=== PATIENT | female | born 1960 | race Caucasian/White ===

== ENCOUNTER 2018-04-19 08:01 | Emergency (ER) | payer OTHER, SELFPAY ==
[2018-04-19 08:05] VITALS: BP 149/61; PULSE 72; RESP 20; TEMP 36.3; O2SAT 100
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
[2018-04-19 08:30] VITALS: BP 130/47; PULSE 69; RESP 16; O2SAT 99
--- NOTE | 2018-04-19 08:39 | DI.RAD.S_ITS ---
PROCEDURE: XR CHEST 1V INDICATIONS: syncope TECHNIQUE: One view of the chest was acquired. COMPARISON: [facility], CR, XR CHEST 1VW (PORTABLE), 01/05/2017, 16:30. FINDINGS: Surgical changes and devices: Cardiac defibrillator is stable. Lungs and pleura: No pleural effusions or pneumothorax. Lungs are clear. Mediastinum: Mediastinal contours appear normal. Heart size is enlarged. Bones and chest wall: No suspicious bony lesions. Overlying soft tissues appear unremarkable. IMPRESSION: No acute cardiopulmonary disease process. Dictated by: Jaimie King MD, PhD on 04/19/2018 at 8:50 Approved by: Jaimie King MD, PhD on 04/19/2018 at 8:52
[2018-04-19 08:52] LABS: Add Manual Diff / Slide Review NO; Alanine Aminotransferase 27 IU/L (9-52); Albumin 4.1 g/dL (3.5-5.0); Albumin Globulin Ratio 1.2 (1.0-2.8); Alkaline Phosphatase 87 U/L (38-126); Aspartate Aminotransferase 24 IU/L (14-36); BUN Creatinine Ratio 26.3 (6-22); Basophils Percent Auto 0.3 % (0-2); Bilirubin Total 0.4 mg/dL (0.2-1.3); Blood Urea Nitrogen 21 mg/dL (7-17); Calcium 8.6 mg/dL (8.4-10.2); Carbon Dioxide 33 mmol/L (22-32); Chloride 101 mmol/L (98-107); Creatine Kinase 58 U/L (30-135); Eosinophils Percent Auto 2.2 % (2-4); Estimated Glomerular Filt Rate > 60.0 mL/min (>60); Globulin 3.5 g/dL (1.7-4.1); Glucose 90 mg/dL (70-100); HEMOLYSIS < 15 (0-50); Hematocrit 29.6 % (36-46); Hemoglobin 9.6 g/dL (12.0-16.0); Lymphocytes Percent Auto 28.3 % (25-40); Mean Corpuscular HGB Conc 32.2 % (30-36); Mean Corpuscular Hemoglobin 27.4 PG (26-34); Mean Corpuscular Volume 84.9 fL (80-100); Monocytes Percent Auto 5.9 % (3-14); Neutrophils Absolute Auto 5400 /uL (3000-5900); Neutrophils Percent Auto 63.3 % (50-75); Platelet Count 336 X10^3/uL (150-400); Potassium 4.4 mmol/L (3.4-5.1); Red Blood Cell Count 3.49 X10^6/uL (4.0-5.2); Red Cell Distribution Width 15.6 % (11.6-14.8); Sodium 142 mmol/L (137-145); Total Protein 7.6 g/dL (6.3-8.2); White Blood Cell Count 8.5 X10^3/uL (4.5-11.0)
[2018-04-19] MEDS: ASPIRIN 325 MG TABLET PO (08:53)
[2018-04-19 08:59] VITALS: BP 130/47; PULSE 67; RESP 17; O2SAT 99
[2018-04-19 09:08] LABS: Troponin I < 0.012 ng/mL (0.01-0.034)
[2018-04-19 09:13] LABS: B Type Natriuretic Peptide 98.6 (<100)
[2018-04-19 09:45] VITALS: BP 135/51; PULSE 67; RESP 17; O2SAT 100
[2018-04-19 10:14] LABS: Appearance Urine UA SL CLOUDY; Bilirubin Urine UA NEGATIVE (NEGATIVE); Color Urine UA YELLOW; Glucose Urine UA NEGATIVE (Normal); Ketones Urine UA NEGATIVE (NEGATIVE); Leukocyte Esterase Urine UA NEGATIVE (NEGATIVE); Nitrite Urine UA NEGATIVE (Negative); Occult Blood Urine UA NEGATIVE (Negative); Protein Urine UA NEGATIVE (Negative)
[2018-04-19 10:31] LABS: Bacteria Urine Many (>30); Culture Indicated Urine Cult Not Indicated; RBC Urine 0-1/HPF (0-5/HPF); Squamous Epithelial Cell Urine 5-10 /HPF; WBC Urine 1-5/HPF (0-5/HPF)
[2018-04-19 10:54] VITALS: BP 140/56; PULSE 69; RESP 14; O2SAT 100
[2018-04-19 12:03] VITALS: BP 148/56; PULSE 70; RESP 16; O2SAT 100
== END 2018-04-19 12:17 | disposition home or self-care (01) ==
PROVIDERS: Emergency Provider Emergency Medicine
DX: R55 Syncope and collapse (principal)
CPT/HCPCS: 36591; 71045; 80053; 81001; 82550; 82962; 83880; 84484; 85025; 93005; 93041

== ENCOUNTER 2018-04-19 19:37 | Emergency (ER) | payer OTHER, SELFPAY ==
[2018-04-19 19:38] VITALS: BP 173/76; PULSE 77; RESP 16; TEMP 36.2; O2SAT 97; BMI 49.8
--- NOTE | 2018-04-19 19:50 | DI.RAD.S_ITS ---
PROCEDURE: XR CHEST 1V INDICATIONS: pain, defib discharge TECHNIQUE: One view of the chest was acquired. COMPARISON: [facility], CR, XR CHEST 1V, 04/19/2018, 8:44. FINDINGS: Surgical changes and devices: Single lead defibrillator is unchanged. Lungs and pleura: No pleural effusions or pneumothorax. Lungs are clear. Mediastinum: Mediastinal contours appear normal. Heart size is enlarged, as before. Bones and chest wall: No suspicious bony lesions. Overlying soft tissues appear unremarkable. IMPRESSION: Stable cardiomegaly. No acute pulmonary findings. Dictated by: Dawna Brewer M.D. on 04/19/2018 at 20:31 Approved by: Dawna Brewer M.D. on 04/19/2018 at 20:31
[2018-04-19 20:04] LABS: Add Manual Diff / Slide Review NO; Basophils Percent Auto 0.7 % (0-2); Eosinophils Percent Auto 2.2 % (2-4); Hematocrit 30.5 % (36-46); Hemoglobin 9.9 g/dL (12.0-16.0); Lymphocytes Percent Auto 25.9 % (25-40); Mean Corpuscular HGB Conc 32.4 % (30-36); Mean Corpuscular Hemoglobin 27.3 PG (26-34); Mean Corpuscular Volume 84.1 fL (80-100); Monocytes Percent Auto 6.1 % (3-14); Neutrophils Absolute Auto 6900 /uL (3000-5900); Neutrophils Percent Auto 65.1 % (50-75); Platelet Count 340 X10^3/uL (150-400); Red Blood Cell Count 3.63 X10^6/uL (4.0-5.2); Red Cell Distribution Width 15.7 % (11.6-14.8); White Blood Cell Count 10.6 X10^3/uL (4.5-11.0)
[2018-04-19] MEDS: SODIUM CHLORIDE 0.9% 1,000 ML 150 ML IV (20:11)
[2018-04-19 20:20] LABS: Alanine Aminotransferase 26 IU/L (9-52); Albumin 4.3 g/dL (3.5-5.0); Albumin Globulin Ratio 1.3 (1.0-2.8); Alkaline Phosphatase 92 U/L (38-126); Aspartate Aminotransferase 24 IU/L (14-36); BUN Creatinine Ratio 27.1 (6-22); Bilirubin Total 0.4 mg/dL (0.2-1.3); Blood Urea Nitrogen 19 mg/dL (7-17); Calcium 8.9 mg/dL (8.4-10.2); Carbon Dioxide 34 mmol/L (22-32); Chloride 99 mmol/L (98-107); Creatine Kinase 61 U/L (30-135); Estimated Glomerular Filt Rate > 60.0 mL/min (>60); Globulin 3.4 g/dL (1.7-4.1); Glucose 163 mg/dL (70-100); HEMOLYSIS < 15 (0-50); Lipase 15 U/L (23-300); Potassium 4.2 mmol/L (3.4-5.1); Sodium 142 mmol/L (137-145); Total Protein 7.7 g/dL (6.3-8.2)
[2018-04-19 20:33] LABS: Troponin I < 0.012 ng/mL (0.01-0.034)
--- NOTE | 2018-04-19 21:59 | PC.NURSE ---
Called to pt's bedside at [id number], pt had syncopal episode for less than [address] Mayberry at bedside. Pt was AOx4 after event.
[2018-04-19 22:00] VITALS: BP 153/99; PULSE 77; RESP 15; O2SAT 100
[2018-04-19 22:20] VITALS: BP 189/71; PULSE 74; RESP 15; O2SAT 98
[2018-04-19] MEDS: ONDANSETRON 4 MG/2 ML INJ IV (22:24)
--- NOTE | 2018-04-19 22:25 | ED_ITS ---
HPI - Arrhythmia/Palpitations General Chief Complaint: Arrhythmia/Palpitations Stated Complaint: Auto defib X2 Time Seen by Provider: 04/19/18 19:37 Source: patient and EMS Mode of arrival: EMS Limitations: no limitations History of Present Illness HPI narrative: 57-year-old female presents to the emergency department by EMS with a chief complaint of a syncopal episode and suspected defibrillator discharge. She was seen and evaluated earlier under similar circumstances and had what sounded like a brief near syncopal episode and after thorough evaluation was sent home. She was able to have her defibrillator interrogated at home and was told that her defibrillator did in fact discharge, she was instructed to contact her cardiology office for follow-up. Later this afternoon she had another similar episode where she was briefly syncopal. She denies any prodromal symptoms. She denies any chest pain palpitations MD complaint: rapid heart beat Onset (ago): hour(s) Duration: now resolved Severity: mild Context: AICD discharge Arrhythmia history: AICD Associated symptoms: syncope Related Data Home Medications Medication Instructions Recorded Confirmed insulin NPH isoph U-100 human 65 unit SUBCUT BID #0 08/22/06 04/19/18 [Humulin N NPH U-100 Insulin] insulin regular human [Humulin R 25 - 35 units SQ TIDAC #0 08/22/06 04/19/18 Regular U-100 Insuln] digoxin [Lanoxin] 0.125 mg PO QDAY #0 01/28/16 04/19/18 multivitamin [Multiple Vitamins] 1 tab PO QDAY #0 tab 01/28/16 04/19/18 nitroglycerin [Nitrostat] 0.4 mg SUBLINGUAL PRN PRN #0 01/28/16 04/19/18 nystatin 0 unit TOPICAL BID #30 gm 01/28/16 04/19/18 ranitidine HCl 150 mg PO BID PRN #0 cap 01/28/16 04/19/18 allopurinol 100 mg PO DAILY 04/19/18 04/19/18 carvedilol 25 mg PO BID 04/19/18 04/19/18 duloxetine 60 mg PO DAILY 04/19/18 04/19/18 furosemide 40 mg PO DAILY 04/19/18 04/19/18 isosorbide mononitrate 30 mg PO QAM 04/19/18 04/19/18 levothyroxine 175 mcg PO DAILY 04/19/18 04/19/18 pravastatin 10 mg PO DAILY 04/19/18 04/19/18 sacubitril-valsartan [Entresto] 1 tab PO BID 04/19/18 04/19/18 Allergies Allergy/AdvReac Type Severity Reaction Status Date / Time codeine Allergy Unknown Unverified 10/06/17 12:52 erythromycin base Allergy Unknown Unverified 10/06/17 12:52 [From Erythrocin] Review of Systems Review of Systems All systems reviewed & are unremarkable except as noted in HPI and below Constitutional Denies chills, Denies fever(s), Denies lethargy and Denies weakness Eyes Denies change in vision, Denies eye discharge, Denies irritation and Denies loss of vision ENT Ears, Nose, Mouth, and Throat: Denies change in voice, Denies neck pain and Denies sore throat Cardiovascular Denies chest pain, Denies irregular heart rhythm, Denies lightheadedness, Denies palpitations, Denies dyspnea, Denies dyspnea on exertion and Denies orthopnea Comments: syncope Respiratory Denies cough, Denies dyspnea, Denies dyspnea on exertion and Denies wheezing Gastrointestinal Gastrointestinal: Denies abdominal pain, Denies change in bowel habits, Denies diarrhea, Denies nausea and Denies vomiting Genitourinary Denies hematuria, Denies flank pain, Denies urinary incontinence and Denies urinary urgency Musculoskeletal Denies neck pain Integumentary/Breasts Denies pruritus, Denies erythema, Denies rash and Denies wounds Neurologic Denies confusion, Denies loss of vision and Denies weakness Psychiatric Denies anxiety, Denies confusion, Denies depression, Denies homicidal ideation and Denies suicidal ideation Endocrine Denies palpitations Hematologic/Lymphatic Denies easy bruising Allergic/Immunologic Denies wheezing [facility] Medical History CAD (coronary artery disease) (Acute) Diabetic neuropathy (Acute) Gastroparesis (Acute) Hyperlipidemia (Acute) CHF (congestive heart failure) (Acute) HTN (hypertension) (Acute) Diabetes (Acute) Surgical History H/O cardiac catheterization (Acute) History of implantable cardioverter-defibrillator (ICD) placement (Acute) Social History Smoking Status: Never smoker Exam Narrative Exam Narrative: 57-year-old female resting comfortably Initial Vital Signs Initial Vital Signs: Vital Signs Temperature 97.2 F L 04/19/18 19:38 Pulse Rate 77 04/19/18 19:38 Respiratory Rate 16 04/19/18 19:38 Blood Pressure 173/76 H 04/19/18 19:38 Pulse Oximetry 97 04/19/18 19:38 Const General: cooperative and well developed Nutritional Appearance: well nourished Orientation: alert, awake, oriented x3 and not confused HENMT Head: normocephalic and atraumatic Ears: external ears normal and TM's normal bilaterally Nose: external nose normal and No nasal discharge Face and sinus: sinuses nontender, face symmetric, no sinus tenderness and No dry mucous membranes Mouth: oral mucosae normal and moist mucous membranes Teeth and gingiva: dentition normal Throat: tonsils normal and uvula midline Eyes General: appearance normal, both eyes and all related structures Eyelids: eyelids normal Conjunctivae: conjunctivae normal Sclera: sclerae normal Pupils: PERRL EOM: EOM intact bilaterally Neck Neck: normal visual inspection, trachea midline, No lymphadenopathy, No midline deformity and No JVD Lymphatic: No lymphedema Chest Chest: normal inspection of the chest Resp Effort & Inspection: normal respiratory effort, able to speak in complete sentences, no respiratory distress and no use of accessory muscles Auscultation: clear to auscultation bilaterally, no rales, no rhonchi and no wheezes Cardio Rate: regular rate Rhythm: regular rhythm Heart Sounds: no click, no gallops, no murmurs and no rubs Pulses: normal peripheral pulses GI Inspection: non-distended Palpation: soft, no hepatosplenomegaly, No guarding, No pulsatile mass and No tender Auscultation: normal bowel sounds Back/Spine/Pelvis Back: No CVA tenderness Cervical Spine: cervical ROM normal and No pain with cervical ROM Thoracic/Lumbar Spine: thoracic and lumbar spine normal to inspection Skin General: no rashes or lesions noted, No jaundice and No petechiae Neuro General: alert, oriented x3, gait normal and no focal motor deficits Speech: speech normal Extrem General: full ROM, no clubbing, cyanosis or edema, no pedal edema and no calf tenderness Psych Appearance: well kempt Mental Status: mental status grossly normal Attitude: cooperative Thought Content: normal and suicidality Judgment: judgment good Course Orders Ordered: ED Orders 04/19/18 19:50 XR chest 1V Stat 04/19/18 19:55 Complete Blood Count AUTO DIFF Stat Comprehensive Metabolic Panel Stat Lipase Stat Troponin & CK Cardiac Panel Stat Sodium Chloride (Normal Saline 0.9%) 1,000 mls @ 150 mls/hr IV CONT CESAR Last Admin: 04/19/18 20:11 Dose: 150 mls/hr Reevaluation(s) Reevaluation #1: Called to patient's bedside for another brief syncopal event and he witnessed obvious discharge of her AICD. She quickly woke up and was asymptomatic. Our monitor shows what likely was VFib in the moments leading into her discharge Time: 21:59 Consultations Consultation #1: Dr. Lux called, he is in agreement that patient needs to come to [facility] for further eval. Recommends I speak with hospitalist. Dr. Myrick is happy to accept. Vital Signs - 8 hr 04/19/18 19:38 04/19/18 22:00 04/19/18 22:20 Temperature 97.2 F L Pulse Rate 77 77 74 Respiratory Rate 16 15 15 Blood Pressure 173/76 H 189/71 H Blood Pressure [Right Wrist] 153/99 H Pulse Oximetry 97 100 98 MDM - Arrhythmia/Palpitations Medical Records Attestation: I reviewed the patient's medical records. Lab Data Attestation: I reviewed the patient's lab results. Result diagrams: 04/19/18 19:55 04/19/18 19:55 Lab Results 04/19/18 04/19/18 Range/Units 19:55 19:55 WBC 10.6 (4.5-11.0) X10^3/uL RBC 3.63 L (4.0-5.2) X10^6/uL Hgb 9.9 L (12.0-16.0) g/dL Hct 30.5 L (36-46) % MCV 84.1 (80-100) fL MCH 27.3 (26-34) PG MCHC 32.4 (30-36) % RDW 15.7 H (11.6-14.8) % Plt Count 340 (150-400) X10^3/uL Neut % (Auto) 65.1 (50-75) % Lymph % (Auto) 25.9 (25-40) % Garrett % (Auto) 6.1 (3-14) % Eos % (Auto) 2.2 (2-4) % Baso % (Auto) 0.7 (0-2) % Neut # (Auto) 6900 H (3542-9195) /uL Sodium 142 (137-145) mmol/L Potassium 4.2 (3.4-5.1) mmol/L Chloride 99 (98-107) mmol/L Carbon Dioxide 34 H (22-32) mmol/L BUN 19 H (7-17) mg/dL Creatinine 0.70 (0.52-1.04) mg/dL Estimated GFR > 60.0 (>60) mL/min BUN/Creatinine Ratio 27.1 H (6-22) Glucose 163 H (70-100) mg/dL Calcium 8.9 (8.4-10.2) mg/dL Total Bilirubin 0.4 (0.2-1.3) mg/dL AST 24 (14-36) IU/L ALT 26 (9-52) IU/L Alkaline Phosphatase 92 (38-126) U/L Total Creatine Kinase 61 (30-135) U/L CK-MB (CK-2) TNP CK-MB (CK-2) Rel Index TNP Troponin I < 0.012 (0.01-0.034) ng/mL Total Protein 7.7 (6.3-8.2) g/dL Albumin 4.3 (3.5-5.0) g/dL Globulin 3.4 (1.7-4.1) g/dL Albumin/Globulin Ratio 1.3 (1.0-2.8) Lipase 15 L (23-300) U/L Point of Care Testing Glucose POC 194 Discharge Plan Departure Patient Disposition: [facility] Clinical Impression: AICD discharge Prescriptions: No Action insulin regular human [Humulin R Regular U-100 Insuln] 100 unit/mL Solution 25 - 35 units SQ TIDAC Qty: 0 RF: 0 insulin NPH isoph U-100 human [Humulin N NPH U-100 Insulin] 100 unit/mL Suspension 65 unit SUBCUT BID Qty: 0 RF: 0 digoxin [Lanoxin] 125 MCG tablet 0.125 mg PO QDAY Qty: 0 RF: 0 multivitamin [Multiple Vitamins] 1 EACH tablet 1 tab PO QDAY Qty: 0 RF: 0 nitroglycerin [Nitrostat] 0.4 MG tablet, sublingual 0.4 mg Sublingual PRN PRN (Reason: Chest Pain) Qty: 0 RF: 0 nystatin 30 GM cream Topical BID Qty: 30 RF: 2 ranitidine HCl 150 MG capsule 150 mg PO BID PRN (Reason: Indigestion) Qty: 0 RF: 0 furosemide 40 mg Tablet 40 mg PO DAILY RF: 0 levothyroxine 175 mcg Tablet 175 mcg PO DAILY RF: 0 carvedilol 25 mg Tablet 25 mg PO BID RF: 0 isosorbide mononitrate 30 mg Tablet Extended Release 24 Hr 30 mg PO QAM RF: 0 allopurinol 100 mg Tablet 100 mg PO DAILY RF: 0 pravastatin 10 mg Tablet 10 mg PO DAILY RF: 0 duloxetine 60 mg Capsule,Delayed Release(Dr/Ec) 60 mg PO DAILY RF: 0 sacubitril-valsartan [Entresto] 97-103 mg Tablet 1 tab PO BID RF: 0
== END 2018-04-19 22:42 | disposition short-term general hospital (02) ==
PROVIDERS: Emergency Provider Emergency Medicine; Family Provider Family Medicine; PCP Family Medicine
DX: R55 Syncope and collapse (principal); Z45.02 Encounter for adjustment and management of automatic implantable cardiac defibrillator
CPT/HCPCS: 36591; 71045; 80053; 81001; 82550; 82962; 83690; 83880; 84484; 85025; 93005; 93010; 93041; 96361; 96374; 99283; 99284; 99285; J2405

== ENCOUNTER 2024-12-11 18:58 | Inpatient (IN) | payer MEDICARE, MEDICAID, SELFPAY ==
[2024-12-11] VITALS (12 sets, daily range): BP systolic 124–155; BP diastolic 61–82; PULSE 74–88; RESP 20–32; TEMP 38.8; O2SAT 87–100; BMI 53.1
--- NOTE | 2024-12-11 19:20 | DI.RAD.S_ITS ---
PROCEDURE: XR CHEST 1V INDICATIONS: suspected sepsis TECHNIQUE: One view of the chest was acquired. COMPARISON: None. FINDINGS: Surgical changes and devices: Left chest wall pacemaker lead is in the region of right ventricle. Lungs and pleura: Mild pulmonary vascular congestion. No definite focal infiltrate. No pleural effusions or pneumothorax. Mediastinum: Mediastinal contours appear normal. Heart size is normal. Bones and chest wall: No suspicious bony lesions. Overlying soft tissues appear unremarkable. IMPRESSION: Cardiomegaly and mild congestion. No definite focal infiltrate. No significant pleural effusion or pneumothorax. Dictated by: Christopher Cherry M.D. on 12/11/2024 at 20:37 Approved by: Christopher Cherry M.D. on 12/11/2024 at 20:38
--- NOTE | 2024-12-11 19:20 | EKG_ITS ---
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
[2024-12-11 19:34] LABS: Add Manual Diff / Slide Review NO; Basophils Absolute Auto 100 /uL (0-100); Basophils Percent Auto 0.5 % (0-2); Eosinophils Absolute Auto 0 /uL (0-450); Hematocrit 36.5 % (36-46); Hemoglobin 11.9 g/dL (12.0-16.0); Lymphocytes Absolute Auto 1500 /uL (1100-4500); Lymphocytes Percent Auto 7.1 % (25-40); Mean Corpuscular HGB Conc 32.7 % (30-36); Mean Corpuscular Hemoglobin 29.6 PG (26-34); Mean Corpuscular Volume 90.6 fL (80-100); Monocytes Absolute Auto 800 /uL (0-900); Monocytes Percent Auto 3.6 % (3-14); Neutrophils Absolute Auto 18900 /uL (1500-7000); Neutrophils Percent Auto 88.8 % (50-75); Platelet Count 246 X10^3/uL (150-400); Red Blood Cell Count 4.02 X10^6/uL (4.0-5.2); Red Cell Distribution Width 15.7 % (11.6-14.8); White Blood Cell Count 21.3 X10^3/uL (4.5-11.0)
[2024-12-11 19:44] LABS: Lactate (Lactic Acid) 1.8 mmol/L (0.7-2.1)
[2024-12-11 19:45] LABS: Alanine Aminotransferase 21 IU/L (<35); Albumin 4.1 g/dL (3.5-5.0); Albumin Globulin Ratio 1.2 (1.0-2.8); Alkaline Phosphatase 98 U/L (38-126); Aspartate Aminotransferase 40 IU/L (14-36); BUN Creatinine Ratio 29.1 (6-22); Bilirubin Total 0.9 mg/dL (0.2-1.3); Blood Urea Nitrogen 39 mg/dL (7-17); Calcium 8.6 mg/dL (8.4-10.2); Carbon Dioxide 32 mmol/L (22-32); Chloride 100 mmol/L (98-107); Estimated Glomerular Filt Rate 45 mL/min (>60); Globulin 3.5 g/dL (1.7-4.1); Glucose 136 mg/dL (70-99); HEMOLYSIS < 15 (0-50); Lipase 13 U/L (23-300); Sodium 140 mmol/L (137-145); Total Protein 7.6 g/dL (6.3-8.2)
[2024-12-11] MEDS: SODIUM CHLORIDE 0.9% 1,000 ML 1000 ML IV (19:45)
[2024-12-11 19:47] LABS: INR 1.1 (0.9-1.3); Prothrombin Time 12.8 SECONDS (9.4-12.5)
[2024-12-11 19:49] LABS: PTT Partial Thromboplastin Tim 34 SECONDS (25.1-36.5)
[2024-12-11 19:51] LABS: Ketones (Beta-Hydroxybutyrate) 0.05 mmol/L (<0.27)
[2024-12-11] MEDS: PIPERACILLIN/TAZO 4.5 GM in SODIUM CHLORIDE 0.9% 100 ML IV (19:55)
[2024-12-11 19:56] LABS: NT-proBNP (BNP-Adult 18+) 2970 pg/mL (<125); Troponin I < 0.012 ng/mL (0.01-0.034)
--- NOTE | 2024-12-11 20:10 | PC.NURSE ---
Pt moved to room 11. Pt will respond to questions but then fall asleep. Pt is not quick to respond.
[2024-12-11 20:19] LABS: Base Excess VBG 5.4 mmol/L (0-4); HCO3 VBG 32 mmol/L (24-28); Oxygen Saturation VBG 48 % (70-75); PCO2 VBG 56.9 mmHg (45-50); PO2 VBG 28 mmHg (35-45); Total CO2 VBG 31 mmol/L (24-29); pH VBG 7.36 (7.33-7.43)
--- NOTE | 2024-12-11 22:33 | DI.CT.S_ITS ---
PROCEDURE: CT ABDOMEN PELVIS W CON INDICATIONS: sepsis TECHNIQUE: After the administration of intravenous contrast, axial sections acquired from the lung bases to the pubic symphysis. Coronal and sagittal reformats were performed. For radiation dose reduction, the following was used: automated exposure control, adjustment of mA and/or kV according to patient size. COMPARISON: [facility], MR, MR ABDOMEN LIVER PROTOCOL, 11/05/2022, 9:51. [facility], CT, CT ABDOMEN PELVIS WITH CONTRAST, 11/03/2022, 6:27. FINDINGS: Image quality: Diagnostic. Lower Chest: Bibasilar atelectasis. Moderate cardiomegaly. ABDOMEN: Liver: Stable appearance of 4.2 cm hepatic hemangioma involving the posterior aspect of the right hepatic lobe. No other new or suspicious hepatic lesions. Gallbladder: Cholelithiasis. No CT evidence for acute cholecystitis. Biliary ducts: No biliary dilation. Pancreas: No ductal dilation. Spleen: Size is within normal limits. Adrenal Glands: No adrenal nodules. Kidneys and Ureters: No hydronephrosis. No solid mass. No complex renal cystic lesion which requires follow up. Bilateral ureters are normal in course and caliber Stomach and Bowel: Normal colonic caliber, without significant wall thickening. No evidence for small bowel obstruction or associated inflammatory changes. Normal appendix. Peritoneum: No abnormal intraperitoneal fluid. No free air. Ventral Wall: There is a fat-containing umbilical hernia without acute inflammation. Abdominal Nodes: No retroperitoneal or mesenteric adenopathy by size criteria. Vessels: Scattered atherosclerotic calcifications of the abdominal aorta and iliac vessels without aneurysmal dilatation. The inferior vena cava appears patent. PELVIS: Pelvic Organs: Unremarkable. Bladder: No bladder wall thickening, accounting for underdistention. Pelvic Nodes: No enlarged lymph nodes. Miscellaneous: No inguinal hernias are seen. Mild superficial skin thickening of the bilateral lower abdominal wall likely related to injection sites. This was seen on prior studies. Bones: No aggressive osseous abnormality. New but chronic appearing anterior compression deformity of the L2 vertebral body. Multilevel spondylosis of the imaged spine. IMPRESSION: CT abdomen and pelvis without acute abnormalities to explain patient's symptoms. Cholelithiasis without CT evidence for acute cholecystitis. Stable appearance of 4.2 cm right hepatic lobe hemangioma. New since November 03, 2022 CT but chronic appearing anterior compression deformity of the L2 vertebral body. Other chronic findings as above. Dictated by: Gio Gannon M.D. on 12/11/2024 at 23:48 Approved by: Gio Gannon M.D. on 12/11/2024 at 23:55
--- NOTE | 2024-12-11 22:46 | ED.NAVMDI ---
HPI - Nausea/Vomiting/Diarrhea General Chief complaint: Nausea/Vomiting/Diarrhea Stated complaint: NV Time Seen by Provider: 12/11/24 19:21 Source: patient Mode of arrival: EMS History of Present Illness HPI Narrative: 64-year-old woman with a history of insulin-dependent diabetes, heart failure with implantable defibrillator, hypothyroidism, hyperlipidemia presents complaining of fever, intractable nausea and vomiting and increasing abdominal pain. She notes that she had a dental appointment on the for a dental cleaning. On she was feeling significantly worse, Wednesday and Wednesday she was vomiting much of the weekend. She states that her blood sugars have continued to be okay, she still uses a finger poke and does not have a continuous glucose monitor. She has had a fever complains of general malaise, no cough, chest pain no significant abdominal pain Related Data Home Medications ?Medication ?Instructions ?Recorded ?Confirmed insulin NPH isoph U-100 human 100 65 unit SUBCUT BID ##0 08/22/06 04/19/18 unit/mL subcutaneous suspension (Humulin N NPH U-100 Insulin (isophane susp)) insulin regular human 100 unit/mL 25 - 35 units SQ TIDAC ##0 08/22/06 04/19/18 injection solution (Humulin R Regular U-100 Insulin) digoxin 125 mcg (0.125 mg) tablet 0.125 mg PO QDAY ##0 01/28/16 04/19/18 (Lanoxin) multivitamin (Multiple Vitamins 1 tab PO QDAY #0 tabs 01/28/16 04/19/18 tablet) nitroglycerin 0.4 mg sublingual 0.4 mg sublingual PRN PRN Chest 01/28/16 04/19/18 tablet (Nitrostat) Pain ##0 nystatin 100,000 unit/gram topical 0 unit topical BID ##30 01/28/16 04/19/18 cream ranitidine HCl 150 mg capsule 150 mg PO BID PRN Indigestion #0 01/28/16 04/19/18 caps allopurinol 100 mg tablet 100 mg PO DAILY 04/19/18 04/19/18 carvedilol 25 mg tablet 25 mg PO BID 04/19/18 04/19/18 duloxetine 60 mg capsule,delayed 60 mg PO DAILY 04/19/18 04/19/18 release furosemide 40 mg tablet 40 mg PO DAILY 04/19/18 04/19/18 isosorbide mononitrate 30 mg 30 mg PO QAM 04/19/18 04/19/18 tablet,extended release 24 hr levothyroxine 175 mcg tablet 175 mcg PO DAILY 04/19/18 04/19/18 pravastatin 10 mg tablet 10 mg PO DAILY 04/19/18 04/19/18 sacubitril 97 mg-valsartan 103 mg 1 tab PO BID 04/19/18 04/19/18 tablet (Entresto) Allergies Allergy/AdvReac Type Severity Reaction Status Date / Time azithromycin Allergy Mild Vomiting Verified 12/11/24 19:13 codeine Allergy Unknown Unverified 12/11/24 19:13 erythromycin base (From Allergy Unknown Unverified 12/11/24 19:13 Erythrocin) Review of Systems Review of Systems Narrative: Pertinent positive and negative findings as per HPI Patient History Medical History (Updated 12/12/24 @ 02:58 by Mimi Barakat MD) CAD (coronary artery disease) Diabetic neuropathy Gastroparesis Hyperlipidemia CHF (congestive heart failure) HTN (hypertension) Diabetes Surgical History H/O cardiac catheterization History of implantable cardioverter-defibrillator (ICD) placement Exam Initial Vital Signs Initial Vital Signs: Vital Signs Temperature 101.9 F H 12/11/24 19:13 Pulse Rate 82 12/11/24 19:13 Respiratory Rate 32 H 12/11/24 19:13 Blood Pressure 155/82 H 12/11/24 19:13 Pulse Oximetry 87 L 12/11/24 19:13 Oxygen Delivery Method Room Air 12/11/24 19:13 General: Patient appears ill, uncomfortable, oriented and able to cooperate completely with exam HEENT: Dry mucous membranes, normal sclera with reactive pupils, Respiratory: Lungs are clear to auscultation, no wheezing no rales no rhonchi. Full and symmetrical air movement Cardiac: Regular rate and rhythm no murmurs no bruits Abdomen: Soft, nontender, no rebound or guarding, no flank pain Skin: Medial aspect of her left thigh has some expanding erythema concerning for developing cellulitis with no obvious abscess or fluctuance Neurologic: Globally weak but otherwise Grossly neurologically intact with no obvious asymmetries or abnormalities Extremities: No trauma, well perfused Psych: Cooperative, appropriate insight and affect Course Orders Ordered: ED Orders 12/11/24 19:09 BNP [NT-proBNP (BNP-Adult 18+)] Stat Complete Blood Count AUTO DIFF Stat Comprehensive Metabolic Panel Stat Ketones (Beta-Hydroxybutyrate) Stat Lactate (Lactic Acid) Stat Lipase Stat PTT Partial Thromboplastin Francisco Stat Procalcitonin Stat Prothrombin Time INR Stat Trop I [Troponin I] Stat 12/11/24 19:20 XR chest 1V Stat EKG-12 Lead Stat RT Consult Eval and Treat NOW 12/11/24 19:22 VBG [Venous Blood Gas] STAT 12/11/24 19:42 Blood Culture Stat 12/11/24 20:15 Venous Blood Gas Routine 12/11/24 22:33 CT abdomen pelvis w con Stat Ondansetron HCl (Ondansetron 4 Mg/2 Ml Inj) 4 mg IV NOW PRN PRN Reason: Nausea And Vomiting Ondansetron HCl (Ondansetron 4 Mg Odt) 4 mg PO NOW PRN PRN Reason: Nausea And Vomiting Discontinued Medications Sodium Chloride (Normal Saline 0.9%) 1,000 mls @ 1,000 mls/hr IV BOLUS ONE Stop: 12/11/24 20:19 Last Infusion: 12/11/24 20:46 Dose: Infused Documented By: Admin: 12/11/24 19:45 Dose: 1,000 mls/hr Documented By: Piperacillin Sod/Tazobactam (Sod 4.5 gm/ Sodium Chloride) 100 mls @ 200 mls/hr IV NOW ONE Stop: 12/11/24 19:23 Last Infusion: 12/11/24 20:46 Dose: Infused Documented By: Admin: 12/11/24 19:55 Dose: 200 mls/hr Documented By: Vital Signs Vital signs: Vital Signs - 8 hr 12/11/24 19:13 12/11/24 19:32 12/11/24 19:34 Temperature 101.9 F H Pulse Rate 82 88 84 Respiratory Rate 32 H Blood Pressure 155/82 H Pulse Oximetry 87 L 99 100 Oxygen Delivery Method Room Air Oxygen Flow Rate 12/11/24 19:34 12/11/24 20:00 12/11/24 20:30 Temperature Pulse Rate 88 77 Respiratory Rate 24 Blood Pressure 144/71 H Pulse Oximetry 99 99 Oxygen Delivery Method Oxygen Flow Rate 12/11/24 21:00 12/11/24 21:30 12/11/24 22:00 Temperature Pulse Rate 75 80 82 Respiratory Rate 24 24 24 Blood Pressure 148/68 H Pulse Oximetry 98 99 97 Oxygen Delivery Method Nasal Cannula Nasal Cannula Nasal Cannula Oxygen Flow Rate 3 3 3 12/11/24 22:23 12/11/24 22:23 12/11/24 22:30 Temperature Pulse Rate 75 84 Respiratory Rate 24 20 Blood Pressure 148/65 H Pulse Oximetry 97 97 Oxygen Delivery Method Nasal Cannula Nasal Cannula Oxygen Flow Rate 3 3 12/11/24 22:30 12/11/24 23:00 12/11/24 23:00 Temperature Pulse Rate 76 Respiratory Rate Blood Pressure 124/61 139/63 Pulse Oximetry 96 Oxygen Delivery Method Nasal Cannula Oxygen Flow Rate 3 12/11/24 23:30 12/12/24 00:00 12/12/24 00:30 Temperature Pulse Rate 74 83 72 Respiratory Rate 23 23 23 Blood Pressure Pulse Oximetry 96 96 96 Oxygen Delivery Method Nasal Cannula Nasal Cannula Nasal Cannula Oxygen Flow Rate 3 3 3 12/12/24 01:00 12/12/24 01:30 12/12/24 01:33 Temperature Pulse Rate 73 72 78 Respiratory Rate 24 24 Blood Pressure Pulse Oximetry 97 97 93 Oxygen Delivery Method Nasal Cannula Nasal Cannula Oxygen Flow Rate 3 3 12/12/24 01:33 12/12/24 02:00 12/12/24 02:00 Temperature Pulse Rate 73 Respiratory Rate 24 Blood Pressure 143/65 H 130/58 L Pulse Oximetry 92 Oxygen Delivery Method Nasal Cannula Oxygen Flow Rate 3 12/12/24 02:30 12/12/24 02:30 Temperature Pulse Rate 71 Respiratory Rate 24 Blood Pressure 140/64 Pulse Oximetry 98 Oxygen Delivery Method Nasal Cannula Oxygen Flow Rate 3 MDM - Nausea/Vomiting/Diarrhea Lab Data 12/11/24 19:09 12/11/24 19:09 Labs: Lab Results 12/11/24 12/11/24 Range/Units 19:09 20:15 WBC 21.3 H (4.5-11.0) X10^3/uL RBC 4.02 (4.0-5.2) X10^6/uL Hgb 11.9 L (12.0-16.0) g/dL Hct 36.5 (36-46) % MCV 90.6 (80-100) fL MCH 29.6 (26-34) PG MCHC 32.7 (30-36) % RDW 15.7 H (11.6-14.8) % Plt Count 246 (150-400) X10^3/uL Neut % (Auto) 88.8 H (50-75) % Lymph % (Auto) 7.1 L (25-40) % Coos % (Auto) 3.6 (3-14) % Eos % (Auto) 0.0 L (2-4) % Baso % (Auto) 0.5 (0-2) % Neut # (Auto) 51009 H (6809-9538) /uL Lymph # (Auto) 1500 (2984-1195) /uL Coos # (Auto) 800 (0-900) /uL Eos # (Auto) 0 (0-450) /uL Baso # (Auto) 100 (0-100) /uL PT 12.8 H (9.4-12.5) SECONDS INR 1.1 (0.9-1.3) APTT 34 (25.1-36.5) SECONDS VBG pH 7.36 (7.33-7.43) VBG pCO2 56.9 H (45-50) mmHg VBG pO2 28 L (35-45) mmHg VBG HCO3 32 H (24-28) mmol/L VBG Total CO2 31 H (24-29) mmol/L VBG O2 Saturation 48 L (70-75) % VBG Base Excess 5.4 H (0-4) mmol/L FiO2 % 32.0 % % Sodium 140 (137-145) mmol/L Potassium 4.0 (3.4-5.1) mmol/L Chloride 100 (98-107) mmol/L Carbon Dioxide 32 (22-32) mmol/L BUN 39 H (7-17) mg/dL Creatinine 1.34 H (0.52-1.04) mg/dL Estimated GFR 45 L (>60) mL/min BUN/Creatinine Ratio 29.1 H (6-22) Glucose 136 H (70-99) mg/dL Lactate 1.8 (0.7-2.1) mmol/L Calcium 8.6 (8.4-10.2) mg/dL Total Bilirubin 0.9 (0.2-1.3) mg/dL AST 40 H (14-36) IU/L ALT 21 (<35) IU/L Alkaline Phosphatase 98 (38-126) U/L Troponin I < 0.012 (0.01-0.034) ng/mL NT-Pro-B Natriuret Pep 2970 H (<125) pg/mL Total Protein 7.6 (6.3-8.2) g/dL Albumin 4.1 (3.5-5.0) g/dL Globulin 3.5 (1.7-4.1) g/dL Albumin/Globulin Ratio 1.2 (1.0-2.8) Lipase 13 L (23-300) U/L Procalcitonin 0.530 H (<0.5) ng/mL Ketones 0.05 (<0.27) mmol/L Urine Dip Bedside Urine Glucose Negative Bedside Urine Bilirubin - Negative Bedside Urine Ketone - Negative Urine Specific Preston 1.015 Bedside Urine Occult Blood - Negative Bedside Urine pH 5.5 Bedside Urine Protein - Negative Bedside Urine Urobilinogen - Negative Bedside Urine Nitrite - Negative Bedside Urine Leukocytes - Negative Esterase Imaging Data CT scan - abdomen/pelvis: Radiologist's Impression: PROCEDURE: CT ABDOMEN PELVIS W CON INDICATIONS: sepsis TECHNIQUE: After the administration of intravenous contrast, axial sections acquired from the lung bases to the pubic symphysis. Coronal and sagittal reformats were performed. For radiation dose reduction, the following was used: automated exposure control, adjustment of mA and/or kV according to patient size. COMPARISON: [facility], MR, MR ABDOMEN LIVER PROTOCOL, 11/05/2022, 9:51. [facility], CT, CT ABDOMEN PELVIS WITH CONTRAST, 11/03/2022, 6:27. FINDINGS: Image quality: Diagnostic. Lower Chest: Bibasilar atelectasis. Moderate cardiomegaly. ABDOMEN: Liver: Stable appearance of 4.2 cm hepatic hemangioma involving the posterior aspect of the right hepatic lobe. No other new or suspicious hepatic lesions. Gallbladder: Cholelithiasis. No CT evidence for acute cholecystitis. Biliary ducts: No biliary dilation. Pancreas: No ductal dilation. Spleen: Size is within normal limits. Adrenal Glands: No adrenal nodules. Kidneys and Ureters: No hydronephrosis. No solid mass. No complex renal cystic lesion which requires follow up. Bilateral ureters are normal in course and caliber Stomach and Bowel: Normal colonic caliber, without significant wall thickening. No evidence for small bowel obstruction or associated inflammatory changes. Normal appendix. Peritoneum: No abnormal intraperitoneal fluid. No free air. Ventral Wall: There is a fat-containing umbilical hernia without acute inflammation. Abdominal Nodes: No retroperitoneal or mesenteric adenopathy by size criteria. Vessels: Scattered atherosclerotic calcifications of the abdominal aorta and iliac vessels without aneurysmal dilatation. The inferior vena cava appears patent. PELVIS: Pelvic Organs: Unremarkable. Bladder: No bladder wall thickening, accounting for underdistention. Pelvic Nodes: No enlarged lymph nodes. Miscellaneous: No inguinal hernias are seen. Mild superficial skin thickening of the bilateral lower abdominal wall likely related to injection sites. This was seen on prior studies. Bones: No aggressive osseous abnormality. New but chronic appearing anterior compression deformity of the L2 vertebral body. Multilevel spondylosis of the imaged spine. IMPRESSION: CT abdomen and pelvis without acute abnormalities to explain patient's symptoms. Cholelithiasis without CT evidence for acute cholecystitis. Stable appearance of 4.2 cm right hepatic lobe hemangioma. New since November 03, 2022 CT but chronic appearing anterior compression deformity of the L2 vertebral body. Other chronic findings as above. Dictated by: Gio Gannon M.D. on 12/11/2024 at 23:48 MDM Narrative Medical decision making narrative: CC: Fever, vomiting, type 1 diabetes Complicating co-morbidities: Type 1 diabetes, hypertension, hyperlipidemia, peripheral neuropathy, congestive heart failure Data collected from: patient Differential considered: Heart failure, viral syndrome, pneumonia, urinary tract infection, cellulitis, sepsis, DKA Exam documented above, pertinent findings include: Patient appears uncomfortable, she is febrile, no obvious rhonchi in the lungs, belly is soft, erythema in the medial aspect of the left thigh concerning for developing cellulitis without underlying abscess Lab Test results independently reviewed as above. Pertinent findings: CBC is notable for a white count of 21.3 no anemia, platelets at 246 neutrophils elevated at 89% Coagulation studies are unremarkable Venous blood gas has a pH of 7.36 and a CO2 of 57 Troponin is undetectable ProBNP is slightly elevated at 2907 Lipase is normal at 13 Procalcitonin is minimally elevated at 0.5 Urinalysis is unremarkable Independently reviewed EKG: Sinus rhythm at a rate of 84 no significant ischemia Imaging studies independently reviewed: Chest x-ray suggest cardiomegaly and mild pulmonary vascular congestion without obvious pulmonary infiltrate CT of the abdomen was pelvis was done with no obvious source and concern for sepsis. Treatments: Possibility of sepsis was entertained. Lab work including blood cultures was initiated, initially given a L of fluid, started on Zosyn after blood work and urine obtained. Discussion: 64-year-old woman with fever, significant leukocytosis presumed sepsis source etiology includes dental cleaning with bacteremia from 4 days ago, developing cellulitis on the aspect of her inner thigh left side. No obvious pneumonia, no obvious intra-abdominal abscess, no urine or kidney abnormalities appreciated. She is not showing any evidence of diabetic ketoacidosis. She was initially given a L of fluid, blood pressure is appropriate, perfusion is improved. With a history of heart failure and mild congestive findings on chest x-ray additional fluid was not continued. Blood pressure has remained reassuring. She has had intermittent fevers up to 101.9 has been treated with Tylenol. Oxygenation fluctuates between 87 and 93% on room air. We will discuss her care with the hospitalist service and plan on admission Severe Sepsis Criteria [ x ] bacterial source of infection suspected and documented [ x ] 2 SIRS Criteria met [ ] HR >90 [ x ] RR >20 [ x] fever or hypothermia [ x] leukocytosis/leukopenia/bandemia [ ] Evidence of at least 1 organ system dysfunction [ ] Lactate > 2 [ ] BP < 90 or MAP <65, >40mm decrease from normal baseline [ ] Creat > 2.0 [ ] T. Bili > 2.0 [ ] platelet count < 100k [ ] altered mental status [ ] mechanical ventilation [ ] provider documentation of severe sepsis Severe Sepsis Determination. the patient has been screened and [ ] DOES meet criteria for severe sepsis [ x ] DOES NOT meet criteria for severe sepsis Goal directed treatment Within 3 hours [ x ] blood cx drawn prior to abx [ x] broad spectrum abx started [ x ] lactic acid level checked [ ] lactic redrawn within 6 hours if >2.0 Septic Shock Criteria [ ] lactic > 4 at any time [ ] SBP ,90 or MAP , 65 [ ] documentation of septic shock Time Septic Shock diagnosed: [ ] Septic Shock Determination. the patient has been screened and [ ] DOES meet criteria for septic shock [ x ] DOES NOT meet criteria for septic shock Goal directed therapy within 3 hours of septic shock or initial hypotension [ ] 30ml/kg fluid [ ] ABW used [ ] IBW (33.6) used due to BMI > 30 [ ] patient or advocate declining fluid administration after shared decision making conversation Clinical reason for NOT initiating fluid bolus: Within 6 hours (if continued hypotension after fluids or initial lactate >4) [ ] repeat volume status and tissue perfusion assessment documented after fluid bolus was completed at [Date/Time] Must include vital signs, cardiopulmonary exam, capillary refill, peripheral pulse evaluation, skin exam [ ] Initiate vasopressor therapy if persistent hypotension after adequate fluid bolus Discharge Plan Departure Patient Disposition: Admitted As Inpatient Clinical Impression: SIRS (systemic inflammatory response syndrome) Fever Qualifiers: Fever type: unspecified Qualified Code(s): R50.9 - Fever, unspecified Leukocytosis Qualifiers: Leukocytosis type: unspecified Qualified Code(s): D72.829 - Elevated white blood cell count, unspecified Cellulitis Qualifiers: Site of cellulitis: extremity Site of cellulitis of extremity: lower extremity Laterality: left Qualified Code(s): L03.116 - Cellulitis of left lower limb Admit Date/Time: 12/12/24 02:52 Admit Provider: Sumanth Ruvalcaba
[2024-12-12] VITALS (18 sets, daily range): BP systolic 102–143; BP diastolic 48–65; PULSE 62–83; RESP 18–26; TEMP 36.2–37.2; O2SAT 92–100; BMI 53.1
--- NOTE | 2024-12-12 02:52 | PM.HP.1 ---
History of Present Illness History of Present Illness Chief complaint: NV Narrative: 64F with PMH of T1DM with neuropathy & gastroparesis, HTN, CHF (type unknown), hyperlipidemia, CAD who presents complaining of fever, intractable nausea and vomiting and increasing abdominal pain. She notes that she had a dental appointment on the for a dental cleaning. On she was feeling significantly worse, Wednesday and Wednesday she was vomiting much of the weekend. She states that her blood sugars have continued to be okay, she still uses a finger poke and does not have a continuous glucose monitor. She has had a fever complains of general malaise, no cough, chest pain no significant abdominal pain. She is not showing any evidence of diabetic ketoacidosis. She was initially given a L of fluid, blood pressure is appropriate, perfusion is improved. She has had intermittent fevers up to 101.9 has been treated with Tylenol. Oxygenation fluctuates between 87 and 93% on room air. WBC is 21K. She has MARK ANTHONY and elevated procalcitonin. PENDING SALE TO [facility] Medical History (Updated 12/12/24 @ 02:58 by Sumanth Ruvalcaba MD) CAD (coronary artery disease) Diabetic neuropathy Gastroparesis Hyperlipidemia CHF (congestive heart failure) HTN (hypertension) Diabetes Surgical History H/O cardiac catheterization History of implantable cardioverter-defibrillator (ICD) placement Meds Home Medications and Allergies Home Medications ?Medication ?Instructions ?Recorded ?Confirmed ?Type insulin NPH isoph U-100 human 100 65 unit SUBCUT BID ##0 08/22/06 04/19/18 History unit/mL subcutaneous suspension (Humulin N NPH U-100 Insulin (isophane susp)) insulin regular human 100 unit/mL 25 - 35 units SQ TIDAC ##0 08/22/06 04/19/18 History injection solution (Humulin R Regular U-100 Insulin) digoxin 125 mcg (0.125 mg) tablet 0.125 mg PO QDAY ##0 01/28/16 04/19/18 History (Lanoxin) multivitamin (Multiple Vitamins 1 tab PO QDAY #0 tabs 01/28/16 04/19/18 History tablet) nitroglycerin 0.4 mg sublingual 0.4 mg sublingual PRN PRN Chest 01/28/16 04/19/18 History tablet (Nitrostat) Pain ##0 nystatin 100,000 unit/gram topical 0 unit topical BID ##30 01/28/16 04/19/18 History cream ranitidine HCl 150 mg capsule 150 mg PO BID PRN Indigestion #0 01/28/16 04/19/18 History caps allopurinol 100 mg tablet 100 mg PO DAILY 04/19/18 04/19/18 History carvedilol 25 mg tablet 25 mg PO BID 04/19/18 04/19/18 History duloxetine 60 mg capsule,delayed 60 mg PO DAILY 04/19/18 04/19/18 History release furosemide 40 mg tablet 40 mg PO DAILY 04/19/18 04/19/18 History isosorbide mononitrate 30 mg 30 mg PO QAM 04/19/18 04/19/18 History tablet,extended release 24 hr levothyroxine 175 mcg tablet 175 mcg PO DAILY 04/19/18 04/19/18 History pravastatin 10 mg tablet 10 mg PO DAILY 04/19/18 04/19/18 History sacubitril 97 mg-valsartan 103 mg 1 tab PO BID 04/19/18 04/19/18 History tablet (Entresto) Allergies Allergy/AdvReac Type Severity Reaction Status Date / Time azithromycin Allergy Mild Vomiting Verified 12/11/24 19:13 codeine Allergy Unknown Unverified 12/11/24 19:13 erythromycin base (From Allergy Unknown Unverified 12/11/24 19:13 Erythrocin) Review of Systems Review of Systems Narrative: Per HPI. Rest of 10-system review negative. Exam Vital Signs (past 8 hours): - 12/11/24 19:13 12/11/24 19:32 12/11/24 19:34 Temperature 101.9 F H Pulse Rate 82 88 84 Respiratory Rate 32 H Blood Pressure 155/82 H Pulse Oximetry 87 L 99 100 Oxygen Delivery Method Room Air Oxygen Flow Rate 12/11/24 19:34 12/11/24 20:00 12/11/24 20:30 Temperature Pulse Rate 88 77 Respiratory Rate 24 Blood Pressure 144/71 H Pulse Oximetry 99 99 Oxygen Delivery Method Oxygen Flow Rate 12/11/24 21:00 12/11/24 21:30 12/11/24 22:00 Temperature Pulse Rate 75 80 82 Respiratory Rate 24 24 24 Blood Pressure 148/68 H Pulse Oximetry 98 99 97 Oxygen Delivery Method Nasal Cannula Nasal Cannula Nasal Cannula Oxygen Flow Rate 3 3 3 12/11/24 22:23 12/11/24 22:23 12/11/24 22:30 Temperature Pulse Rate 75 84 Respiratory Rate 24 20 Blood Pressure 148/65 H Pulse Oximetry 97 97 Oxygen Delivery Method Nasal Cannula Nasal Cannula Oxygen Flow Rate 3 3 12/11/24 22:30 12/11/24 23:00 12/11/24 23:00 Temperature Pulse Rate 76 Respiratory Rate Blood Pressure 124/61 139/63 Pulse Oximetry 96 Oxygen Delivery Method Nasal Cannula Oxygen Flow Rate 3 12/11/24 23:30 12/12/24 00:00 12/12/24 00:30 Temperature Pulse Rate 74 83 72 Respiratory Rate 23 23 23 Blood Pressure Pulse Oximetry 96 96 96 Oxygen Delivery Method Nasal Cannula Nasal Cannula Nasal Cannula Oxygen Flow Rate 3 3 3 12/12/24 01:00 12/12/24 01:30 12/12/24 01:33 Temperature Pulse Rate 73 72 78 Respiratory Rate 24 24 Blood Pressure Pulse Oximetry 97 97 93 Oxygen Delivery Method Nasal Cannula Nasal Cannula Oxygen Flow Rate 3 3 12/12/24 01:33 12/12/24 02:00 12/12/24 02:00 Temperature Pulse Rate 73 Respiratory Rate 24 Blood Pressure 143/65 H 130/58 L Pulse Oximetry 92 Oxygen Delivery Method Nasal Cannula Oxygen Flow Rate 3 12/12/24 02:30 12/12/24 02:30 Temperature Pulse Rate 71 Respiratory Rate 24 Blood Pressure 140/64 Pulse Oximetry 98 Oxygen Delivery Method Nasal Cannula Oxygen Flow Rate 3 Oxygen Delivery Method Nasal Cannula Oxygen Flow Rate 3 Narrative Exam Narrative: Patient was evaluated entirely through 2-way audio/video telemedicine with RN assistance in exam. Physician was not present at beside in person at any time for this evaluation. Consent for telemedicine obviously obtained from patient. Const Other: AA, NAD, obese HENMT Other: glasses, sclerae anicteric, OP clear, dry MM, nares patent Neck Other: large neck, not evident that it is swollen. Resp Other: digital stethoscope - clear, distant Cardio Other: digital stethoscope - RRR, no murmurs audible GI Other: S/NT/ND/+BS Skin Other: No rashes/lesions seen. Neuro Other: normal speech and facial movements symmetric Extrem Other: 2+ pitting edema BLE Psych Other: normal mood, appropriate affect Objective Imaging Chest x-ray: Radiologist's impression: negative Labs 12/11/24 19:09 12/11/24 19:09 Labs: Laboratory Results - last 24 hr 12/11/24 12/11/24 19:09 20:15 WBC 21.3 H RBC 4.02 Hgb 11.9 L Hct 36.5 MCV 90.6 MCH 29.6 MCHC 32.7 RDW 15.7 H Plt Count 246 Neut % (Auto) 88.8 H Lymph % (Auto) 7.1 L [place] % (Auto) 3.6 Eos % (Auto) 0.0 L Baso % (Auto) 0.5 Neut # (Auto) 05214 H Lymph # (Auto) 1500 [place] # (Auto) 800 Eos # (Auto) 0 Baso # (Auto) 100 PT 12.8 H INR 1.1 APTT 34 VBG pH 7.36 VBG pCO2 56.9 H VBG pO2 28 L VBG HCO3 32 H VBG Total CO2 31 H VBG O2 Saturation 48 L VBG Base Excess 5.4 H FiO2 % 32.0 % Sodium 140 Potassium 4.0 Chloride 100 Carbon Dioxide 32 BUN 39 H Creatinine 1.34 H Estimated GFR 45 L BUN/Creatinine Ratio 29.1 H Glucose 136 H Lactate 1.8 Calcium 8.6 Total Bilirubin 0.9 AST 40 H ALT 21 Alkaline Phosphatase 98 Troponin I < 0.012 NT-Pro-B Natriuret Pep 2970 H Total Protein 7.6 Albumin 4.1 Globulin 3.5 Albumin/Globulin Ratio 1.2 Lipase 13 L Procalcitonin 0.530 H Ketones 0.05 Assessment & Plan Assessment and plan (1) Sepsis: Qualifiers: Acute renal failure type: unspecified Sepsis acute organ dysfunction status: with acute organ dysfunction Sepsis type: sepsis due to unspecified organism Severe sepsis acute organ dysfunction type: acute renal failure Severe sepsis shock status: without septic shock Qualified Code(s): A41.9 - Sepsis, unspecified organism; R65.20 - Severe sepsis without septic shock; N17.9 - Acute kidney failure, unspecified Status: Acute Assessment & Plan narrative: 1. Acute sepsis - bacteremia vs R thigh abscess, POA 2. Recent dental work 3. Extreme obesity, BMI 53 4. DM1 with neuropathy & gastroparesis 5. CAD, HTN, Hyperlipidemia, Hypothyroidism Plan: 1. Admit inpatient, telemetry, med-surg 2. Empiric Zosyn, Add Vanco 3. IV fluids 4. Follow up cultures 5. CMP, CBC, Mg in AM 6. Hold Lasix for now d/t dehydration, sepsis. Resume 80 mg daily when improving 7. basal and sliding scale insulin. Code: Full DVT prophylaxis: UFH Time-Based Coding :: 45 min spent with patient and on the chart (including review of chart, obtaining history, exam, reviewing outside data, placing orders, documenting exam and treatment plan, and counseling patient) on 12/12/2024.
[2024-12-12] MEDS: SODIUM CHLORIDE 0.9% 1,000 ML 75 ML IV ×2 (05:02→18:53)
[2024-12-12] MEDS: PIPERACILLIN/TAZO 3.375 GM in SODIUM CHLORIDE 0.9% 100 ML IV (05:03)
[2024-12-12] MEDS: VANCOMYCIN 2,000 MG/400 ML PIGGYBACK 200 MG IV (05:19)
[2024-12-12] MEDS: INSULIN REGULAR 100 UNIT/ML 3 ML VIAL SUBCUT ×4 (05:21→21:24)
[2024-12-12 05:24] LABS: Add Manual Diff / Slide Review NO; Basophils Absolute Auto 100 /uL (0-100); Basophils Percent Auto 0.7 % (0-2); Eosinophils Absolute Auto 0 /uL (0-450); Hematocrit 32.9 % (36-46); Hemoglobin 10.6 g/dL (12.0-16.0); Lymphocytes Absolute Auto 1200 /uL (1100-4500); Lymphocytes Percent Auto 6.7 % (25-40); Mean Corpuscular HGB Conc 32.1 % (30-36); Mean Corpuscular Hemoglobin 29.4 PG (26-34); Mean Corpuscular Volume 91.7 fL (80-100); Monocytes Absolute Auto 500 /uL (0-900); Monocytes Percent Auto 2.7 % (3-14); Neutrophils Absolute Auto 16600 /uL (1500-7000); Neutrophils Percent Auto 89.9 % (50-75); Platelet Count 200 X10^3/uL (150-400); Red Blood Cell Count 3.59 X10^6/uL (4.0-5.2); Red Cell Distribution Width 15.5 % (11.6-14.8); White Blood Cell Count 18.5 X10^3/uL (4.5-11.0)
[2024-12-12 05:50] LABS: BUN Creatinine Ratio 32.6 (6-22); Blood Urea Nitrogen 42 mg/dL (7-17); Calcium 7.9 mg/dL (8.4-10.2); Carbon Dioxide 23 mmol/L (22-32); Chloride 101 mmol/L (98-107); Estimated Glomerular Filt Rate 47 mL/min (>60); Glucose 386 mg/dL (70-99); HEMOLYSIS 21 (0-50); Magnesium 1.9 mg/dL (1.6-2.3); Potassium 4.3 mmol/L (3.4-5.1); Sodium 137 mmol/L (137-145)
--- NOTE | 2024-12-12 05:51 | PC.NURSE ---
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 Patient states that she normally uses a FWW for short distances or a wheelchair at baseline d/t activity intolerance and weakness in BLE. Patient is AxOx4, denies current abd pain, N/V. Reports SOB when not on oxygen, currently on 3LNC 97%. Does not use home O2. VSS. Lung sounds are clear/diminished throughout. Bowel tones hypoactive, soft and nontender. L thigh cellulitis noted, border drawn. No drainage noted. 2+ pitting edema in bilateral feet and ankles noted. Blood glucose: 350. MD notified of findings, spoke with patient via [employer] cart. Patient verbalized understanding of plan of care. IV abx & IVF infusing as ordered. SQ insulin given as ordered, patient is tolerating juice and water well. Patient is oriented to call-light. Plan of care ongoing.
--- NOTE | 2024-12-12 06:47 | PC.WOUNDPHOT ---
^ L inner thigh ^ abdominal fold ^ abdominal fold ^ R foot ^ L foot ^ left leg ^ skin ulcer
--- NOTE | 2024-12-12 07:56 | PC.NURSE ---
Pt blood sugar this morning via fingerstick was 473. Notified Dr. Clark. New orders placed.
[2024-12-12] MEDS: INSULIN LISPRO 100 UNIT/ML 3ML VIAL 8 UNIT SUBCUT (08:16)
[2024-12-12] MEDS: HEPARIN 5,000 UNIT/ML VIAL 5000 UNIT SUBCUT ×2 (08:17→21:10)
[2024-12-12 11:18] LABS: Acinetobacter calcoa-baumannii Not Detected (Not Detect); Bacteroides fragilis Not Detected (Not Detect); Candida albicans Not Detected (Not Detect); Candida auris Not Detected (Not Detect); Candida glabrata Not Detected (Not Detect); Candida krusei Not Detected (Not Detect); Candida parapsilosis Not Detected (Not Detect); Candida tropicalis Not Detected (Not Detect); Cryptococcus neoformans/gatti Not Detected (Not Detect); Enterobacter cloacae complex Not Detected (Not Detect); Enterobacterales Not Detected (Not Detect); Enterococcus faecalis Not Detected (Not Detect); Enterococcus faecium Not Detected (Not Detect); Haemophilus influenzae Not Detected (Not Detect); Klebsiella aerogenes Not Detected (Not Detect); Listeria monocytogenes Not Detected (Not Detect); Neisseria meningitidis Not Detected (Not Detect); Proteus species Not Detected (Not Detect); Pseudomonas aeruginosa Not Detected (Not Detect); Salmonella species Not Detected (Not Detect); Serratia marcescens Not Detected (Not Detect); Staphylococcus epidermidis Not Detected (Not Detect); Staphylococcus lugdunensis Not Detected (Not Detect); Staphylococcus species Not Detected (Not Detect); Stenotrophomonas maltophilia Not Detected (Not Detect); Streptococcus agalactiae (Gr B Detected (Not Detect); Streptococcus pneumonia Not Detected (Not Detect); Streptococcus pyogenes (Gr A) Not Detected (Not Detect); Streptococcus species Detected (Not Detect)
--- NOTE | 2024-12-12 11:52 | CM.DANOTE ---
DCP Assessment Visit Note Reviewed EMR and team rounds for status updates. Met with pt at bedside to introduce self and role. Pt was found to be alert/oriented, resting quietly in bed. Pt lives modified independently in a home she shares with her sister and friend. Her sister will be available to transport her home once she's medically cleared for d/c, likely 1-more day. Payor: Radha PCP: Erick Julesaniya Pt is a 64 year-old F with a hx of type 1 diabetes, CHF, presented to the ED last night via EMS with c/o fevers, intractable nausea/vomiting, and abdominal pain. Chest x-ray showed cardiomegaly and pulmonary vascular congestion. She was started on IV fluids, Zosyn, and admitted for further tx and monitoring. Blood cultures are pending. DCP will continue to follow for any evolving d/c needs or recommendations. Discharge Planning/Care Management CM Discharge Assessment Start: 12/12/24 03:21 Freq: Status: Active Protocol: Document 12/12/24 11:49 DPL (Rec: 12/12/24 11:52 DPL [id number]) Discharge Planning Assessment Assigned Discharge TONI Hernandez Feather Baler Advance Directives? No History Provided By Patient,Medical Record Has Patient been No admitted in last 30 days? Prior Living House Arrangements Household Members family Type of Relies on Others transporation used prior to admit Independent with ADL No: pt has a walker and an electric scooter 's Is patient alert and Yes oriented? Needs Assistance Home Chores / Shopping With Caregiver for No Another DME Already Rented / Elevated Toilet Seat,FWW / Walker,Cane Owned Comment No identified home discharge needs at this time. Barriers to No Discharge Discharge Plan Home Referrals Initiated None needed Whiteboard Updated Yes in Patient Room with name and ext. # of Donor Processor Review Status In Process Please Provide Date 12/12/24 Initial DC Assessment Was Performed
[2024-12-12] MEDS: AMPICILLIN/SULBACTAM 3 GM 3 GM in SODIUM CHLORIDE 0.9% 100 ML IV ×2 (12:24→18:03)
[2024-12-12] MEDS: INSULIN NPH 100 UNIT/ML 10ML VIAL 45 UNIT SUBCUT ×2 (13:27→21:23)
[2024-12-12] MEDS: AMIODARONE 200 MG TABLET PO (13:30)
[2024-12-12] MEDS: allopurinoL 100 MG TABLET PO (13:30)
[2024-12-12] MEDS: POTASSIUM CHLORIDE 20 MEQ TAB PO (13:30)
[2024-12-12] MEDS: DULOXETINE 30 MG CAPSULE 60 MG PO (13:33)
[2024-12-12] MEDS: INSULIN REGULAR 100 UNIT/ML 3 ML VIAL 40 UNIT SUBCUT ×2 (13:33→21:24)
[2024-12-12] MEDS: TORSEMIDE 10 MG TABLET 40 MG PO (13:45)
[2024-12-12] MEDS: MUPIROCIN 22 GM OINT 1 APPLIC TOP (14:01)
--- NOTE | 2024-12-12 15:16 | PM.HP.1 ---
History of Present Illness History of Present Illness Date Patient Seen: 12/12/24 Chief complaint: NV Narrative: Chief complaint: Fever chills nausea vomiting fatigue secondary to sepsis with Gram-positive bacteremia, cellulitis left thigh and 5 days post dental deep cleaning in a type 2 insulin-requiring diabetic History of present illness: 12/12: 64F with PMH of T1DM with neuropathy & gastroparesis, HTN, CHF (type unknown), hyperlipidemia, CAD who presents complaining of fever, intractable nausea and vomiting and increasing abdominal pain. She notes that she had a dental appointment on the for a dental cleaning. On she was feeling significantly worse, Wednesday and Wednesday she was vomiting much of the weekend. She states that her blood sugars have continued to be okay, she still uses a finger poke and does not have a continuous glucose monitor. She has had a fever complains of general malaise, no cough, chest pain no significant abdominal pain. She is not showing any evidence of diabetic ketoacidosis. She was initially given a L of fluid, blood pressure is appropriate, perfusion is improved. She has had intermittent fevers up to 101.9 has been treated with Tylenol. Oxygenation fluctuates between 87 and 93% on room air. WBC is 21K. She has MARK ANTHONY and elevated procalcitonin. For past medical history, past surgical history, social history, family history please see bottom of the note: Hospital course: 12/12: Overnight patient has had improvement in her cellulitis blood sugars have been running high in the 500s which unusual for her except when she sick preliminary blood culture Gram-positive cocci Review of systems: No chest pain palpitations or shortness a breath No paresthesia paresis No urinary symptoms Physical exam: Alert cogent pleasant elderly female HEENT unremarkable Heart sounds distant no murmurs appreciated Lungs sounds distant sounds no rales or rhonchi heard Abdomen nondistended Left lower extremity showing cellulitis at the thigh with the parent retraction from margin that was traced with a pen Alert and oriented nonfocal For objective laboratory and imaging data please see bottom of the note: Assessment and plan: Sepsis with acute kidney injury on chronic diabetic kidney disease secondary to Gram-positive cocci with cellulitis and recent dental deep cleaning and a type 2 diabetic with high insulin resistance and insulin requirement Vancomycin and Unasyn for coverage of MRSA and potential Enterococcus and group B strep Preliminary blood culture Gram-positive cocci await ID and sensitivity IV fluid resuscitation for dehydration and acute kidney injury Continue exogenous insulin with additional sliding scale Hold Lasix until volume repletion then add back at attending discretion Monitor daily CBC BUN creatinine and electrolytes Type 2 diabetes mellitus with insulin dependence and resistance with diabetic gastroparesis Continue exogenous insulin and sliding scale as needed for hypoglycemic episodes Chronic coronary artery disease Continue all core measures DVT prophylaxis Subcutaneous heparin Code status: Full code [facility] Medical History (Updated 12/12/24 @ 02:58 by Sumanth Ruvalcaba MD) CAD (coronary artery disease) Diabetic neuropathy Gastroparesis Hyperlipidemia CHF (congestive heart failure) HTN (hypertension) Diabetes Surgical History H/O cardiac catheterization History of implantable cardioverter-defibrillator (ICD) placement Social History household members: family Smoking Status: Never smoker alcohol intake: never Meds Home Medications and Allergies Home Medications ?Medication ?Instructions ?Recorded ?Confirmed ?Type insulin NPH isoph U-100 human 100 45 unit SUBCUT BID ##0 08/22/06 12/12/24 History unit/mL subcutaneous suspension (Humulin N NPH U-100 Insulin (isophane susp)) insulin regular human 100 unit/mL 10 - 30 units SQ TIDAC ##0 08/22/06 12/12/24 History injection solution (Humulin R Regular U-100 Insulin) multivitamin (Multiple Vitamins 1 tab PO QDAY #0 tabs 01/28/16 12/12/24 History tablet) nitroglycerin 0.4 mg sublingual 0.4 mg sublingual PRN PRN Chest 01/28/16 12/12/24 History tablet (Nitrostat) Pain ##0 nystatin 100,000 unit/gram topical 0 unit topical BID ##30 01/28/16 12/12/24 History cream allopurinol 100 mg tablet 100 mg PO DAILY 04/19/18 12/12/24 History duloxetine 60 mg capsule,delayed 60 mg PO DAILY 04/19/18 12/12/24 History release isosorbide mononitrate 30 mg 60 mg PO QAM 04/19/18 12/12/24 History tablet,extended release 24 hr levothyroxine 175 mcg tablet 175 mcg PO DAILY 04/19/18 12/12/24 History albuterol 90 mcg/actuation aerosol See Rx Instructions inhalation PRN 12/12/24 12/12/24 History inhaler PRN shortness of breath or wheezing amiodarone 200 mg tablet 200 mg PO DAILY 12/12/24 12/12/24 History aspirin 81 mg capsule 81 mg PO DAILY 12/12/24 12/12/24 History clobetasol 0.05 % topical cream 1 applic topical DAILY 12/12/24 12/12/24 History fexofenadine 180 mg tablet 180 mg PO DAILY 12/12/24 12/12/24 History (Letty Allergy) ipratropium 0.5 mg-albuterol 3 mg 3 ml inhalation Q4-6H PRN 12/12/24 12/12/24 History (2.5 mg base)/3 mL nebulization shortness of breath or wheezing soln metoprolol succinate 100 mg 100 mg PO BID 12/12/24 12/12/24 History tablet,extended release 24 hr mupirocin 2 % topical ointment 1 applic topical DAILY 12/12/24 12/12/24 History potassium chloride 20 mEq 20 meq PO DAILY 12/12/24 12/12/24 History tablet,extended release(part/cryst) ropinirole 1 mg tablet 1 mg PO ONCE PM 12/12/24 12/12/24 History rosuvastatin 5 mg tablet 5 mg PO DAILY 12/12/24 12/12/24 History sacubitril 49 mg-valsartan 51 mg 1 tab PO BID 12/12/24 12/12/24 History tablet (Entresto) ticagrelor 90 mg tablet (Brilinta) 90 mg PO BID 12/12/24 12/12/24 History torsemide 20 mg tablet 40 mg PO DAILY 12/12/24 12/12/24 History Allergies Allergy/AdvReac Type Severity Reaction Status Date / Time azithromycin Allergy Mild Vomiting Verified 12/11/24 19:13 codeine Allergy Unknown Unverified 12/11/24 19:13 erythromycin base (From Allergy Unknown Unverified 12/11/24 19:13 Erythrocin) Exam Vital Signs (past 8 hours): - 12/12/24 08:21 12/12/24 08:30 12/12/24 08:32 Temperature 97.9 F Pulse Rate 75 Respiratory Rate 24 Blood Pressure 131/60 Pulse Oximetry 97 97 Oxygen Delivery Method Nasal Cannula Nasal Cannula Oxygen Flow Rate 3 3 12/12/24 12:00 12/12/24 13:33 Temperature 97.2 F L Pulse Rate 62 66 Respiratory Rate 20 Blood Pressure 102/48 L 109/54 L Pulse Oximetry 97 Oxygen Delivery Method Oxygen Flow Rate 0 Oxygen Delivery Method Nasal Cannula Oxygen Flow Rate 0 Objective Labs 12/12/24 05:07 12/12/24 05:07 Labs: Laboratory Results - last 24 hr 12/11/24 12/11/24 12/11/24 19:09 19:42 20:15 WBC 21.3 H RBC 4.02 Hgb 11.9 L Hct 36.5 MCV 90.6 MCH 29.6 MCHC 32.7 RDW 15.7 H Plt Count 246 Neut % (Auto) 88.8 H Lymph % (Auto) 7.1 L [place] % (Auto) 3.6 Eos % (Auto) 0.0 L Baso % (Auto) 0.5 Neut # (Auto) 66113 H Lymph # (Auto) 1500 [place] # (Auto) 800 Eos # (Auto) 0 Baso # (Auto) 100 PT 12.8 H INR 1.1 APTT 34 VBG pH 7.36 VBG pCO2 56.9 H VBG pO2 28 L VBG HCO3 32 H VBG Total CO2 31 H VBG O2 Saturation 48 L VBG Base Excess 5.4 H FiO2 % 32.0 % Sodium 140 Potassium 4.0 Chloride 100 Carbon Dioxide 32 BUN 39 H Creatinine 1.34 H Estimated GFR 45 L BUN/Creatinine Ratio 29.1 H Glucose 136 H Lactate 1.8 Calcium 8.6 Magnesium Total Bilirubin 0.9 AST 40 H ALT 21 Alkaline Phosphatase 98 Troponin I < 0.012 NT-Pro-B Natriuret Pep 2970 H Total Protein 7.6 Albumin 4.1 Globulin 3.5 Albumin/Globulin Ratio 1.2 Lipase 13 L Procalcitonin 0.530 H Ketones 0.05 A.calcoaceticus-baumannii cmplx PCR Not detected Bacteroides fragilis Not detected Radha albicans (PCR) Not detected Radha auris (PCR) Not detected C. glabrata (PCR) Not detected C. krusei (PCR) Not detected C. parapsilosis (PCR) Not detected C. tropicalis (PCR) Not detected C. neoform/gattii (PCR) Not detected Enterobacterales (PCR) Not detected E. cloacae complex PCR Not detected Enterococc faecalis PCR Not detected Enterococc faecium PCR Not detected E. coli (PCR) Not detected H. influenzae (PCR) Not detected Klebsiella aerogenes (PCR) Not detected Klebsiella oxytoca PCR Not detected Klebsiella pneumoniae Not detected List. monocytogenes PCR Not detected N. meningitidis (PCR) Not detected Proteus species (PCR) Not detected Salmonella spp. (PCR) Not detected Serratia marcescens PCR Not detected Staphylococcus sp PCR Not detected Staph aureus (PCR) Not detected mecA/C & MREJ Resist Gene Not applicable mecA/C-Methicil Resis Gene Not applicable mcr-1 Colistin Res Gene PCR Not applicable Staph epidermidis (PCR) Not detected Staph lugdunensis PCR Not detected S. maltophilia (PCR) Not detected Streptococcus sp PCR Detected Group A Strep (PCR) Not detected Strep agalactiae (PCR) Detected Strep pneumoniae (PCR) Not detected P. aeruginosa (PCR) Not detected Benton/B-Vanco Res Genes Not applicable blaIMP Car res Gene PCR Not applicable KPC-Carbap Res Gene PCR Not applicable blaNDM Car Res Gene PCR Not applicable OXA-48 Carbapenem Resis Gene (PCR) Not applicable blaVIM Car Res Gene PCR Not applicable CTX-M Gene Resistance (PCR) Not applicable 12/12/24 05:07 WBC 18.5 H RBC 3.59 L Hgb 10.6 L Hct 32.9 L MCV 91.7 MCH 29.4 MCHC 32.1 RDW 15.5 H Plt Count 200 Neut % (Auto) 89.9 H Lymph % (Auto) 6.7 L [place] % (Auto) 2.7 L Eos % (Auto) 0.0 L Baso % (Auto) 0.7 Neut # (Auto) 78096 H Lymph # (Auto) 1200 [place] # (Auto) 500 Eos # (Auto) 0 Baso # (Auto) 100 PT INR APTT VBG pH VBG pCO2 VBG pO2 VBG HCO3 VBG Total CO2 VBG O2 Saturation VBG Base Excess FiO2 % Sodium 137 Potassium 4.3 Chloride 101 Carbon Dioxide 23 BUN 42 H Creatinine 1.29 H Estimated GFR 47 L BUN/Creatinine Ratio 32.6 H Glucose 386 H D Lactate Calcium 7.9 L Magnesium 1.9 Total Bilirubin AST ALT Alkaline Phosphatase Troponin I NT-Pro-B Natriuret Pep Total Protein Albumin Globulin Albumin/Globulin Ratio Lipase Procalcitonin Ketones A.calcoaceticus-baumannii cmplx PCR Bacteroides fragilis Radha albicans (PCR) Radha auris (PCR) C. glabrata (PCR) C. krusei (PCR) C. parapsilosis (PCR) C. tropicalis (PCR) C. neoform/gattii (PCR) Enterobacterales (PCR) E. cloacae complex PCR Enterococc faecalis PCR Enterococc faecium PCR E. coli (PCR) H. influenzae (PCR) Klebsiella aerogenes (PCR) Klebsiella oxytoca PCR Klebsiella pneumoniae List. monocytogenes PCR N. meningitidis (PCR) Proteus species (PCR) Salmonella spp. (PCR) Serratia marcescens PCR Staphylococcus sp PCR Staph aureus (PCR) mecA/C & MREJ Resist Gene mecA/C-Methicil Resis Gene mcr-1 Colistin Res Gene PCR Staph epidermidis (PCR) Staph lugdunensis PCR S. maltophilia (PCR) Streptococcus sp PCR Group A Strep (PCR) Strep agalactiae (PCR) Strep pneumoniae (PCR) P. aeruginosa (PCR) Benton/B-Vanco Res Genes blaIMP Car res Gene PCR KPC-Carbap Res Gene PCR blaNDM Car Res Gene PCR OXA-48 Carbapenem Resis Gene (PCR) blaVIM Car Res Gene PCR CTX-M Gene Resistance (PCR) Assessment & Plan Time-Based Coding :: 75 minutes spent with patient and on the chart (including review of chart, obtaining history, exam, reviewing outside data, placing orders, documenting exam and treatment plan, and counseling patient). Quality MIPS - Admit I confirm the patient?s Advance Care Plan is present, Code status is documented, Surrogate decision maker is in patient?s record [If Yes, STOP here]: Yes MIPS - Meds 'Current medications' to include all prescriptions, hpso-kei-tfyxmjo products, herbals, cannabis/cannabidiol products, and vitamin/mineral/dietary (nutritional) supplements. I have utilized all available resources to obtain, update, or review the patient?s current medications. [If Yes, STOP here]: Yes
[2024-12-12] MEDS: METOPROLOL ER 50 MG TABLET 100 MG PO (21:10)
[2024-12-12] MEDS: ROPINIROLE 1 MG TABLET PO (21:12)
[2024-12-13] VITALS (10 sets, daily range): BP systolic 93–122; BP diastolic 41–62; PULSE 62–68; RESP 16–26; TEMP 36–36.2; O2SAT 93–100
[2024-12-13] MEDS: Sacubitril-Valsartan [Entresto] 49-51 mg tablet 1 EACH PO ×2 (00:27→08:24)
[2024-12-13] MEDS: AMPICILLIN/SULBACTAM 3 GM 3 GM in SODIUM CHLORIDE 0.9% 100 ML IV ×5 (00:58→23:59)
--- NOTE | 2024-12-13 02:20 | PC.NURSE ---
Addendum entered by Racheal Cornejo R.N. 12/13/24 07:58: Requested for Dr. Case to review and adjust insulin as needed. No new orders. Endorsed to oncoming shift. Addendum entered by Racheal Cornejo R.N. 12/13/24 04:05: Blood sugar rechecked @ 02:30 with result of 48. Pt requested apple juice and zion crackers. Rechecked at 03:30, blood sugar 105. Asymptomatic. Dr. Case made aware. Original Note: Blood sugar dropped down to 45 @ 02:15. [place] and orange juice given. Will recheck at 02:30.
[2024-12-13] MEDS: LEVOTHYROXINE 100 MCG TABLET PO (06:29)
[2024-12-13] MEDS: LEVOTHYROXINE 75 MCG TABLET PO (06:29)
[2024-12-13] MEDS: VANCOMYCIN 2,000 MG/400 ML PIGGYBACK 200 MG IV (06:29)
--- NOTE | 2024-12-13 08:11 | DI.ECHO.S_ITS ---
[facility] : : [address] : : [place] : : [id number] : : Phone: [phone] Echocardiogram Report + + :Name: MORALES SIMPSON Study Date: 12/13/2024 Height: 64 in : :Hospital ReadingLocation: Weight: 311 lb : : Gender: Female BSA: 2.4 m2 : :: 1960 Age: 64 yrs BP: 122/62 mmHg: :Reason For Study: GRAM POSITIVE BACTERIA : :Ordering Physician: JOCELINE, : :YOLIS GONZALEZ Performed By: Rishabh Toney : :Referring: YOLIS CAR : + + Interpretation Summary TDS - MORBID OBESITY, LUNG INTERFERENCE Technically difficult study due to poor acoustic windows. 1. The left ventricular contractility appears to be moderately compromised estimated ejection fraction is approximately 30 to 35%. There is severe hypokinesis of the anterior and lateral segments. Mild to moderate concentric LVH. Grade 1 diastolic dysfunction. 2. In the limited views, the right ventricular contractility appears to be preserved. 3. All cardiac chambers appears to be grossly normal in size. 4. Valves were not well-visualized. Doppler interrogation demonstrated mild mitral regurgitation and mild to moderate tricuspid regurgitation. Estimated pulmonary systolic artery pressures of 60 to 64 mmHg. 5. No obvious intracardiac shunts. 7. No obvious intracardiac masses nor thrombi. 8. No hemodynamically significant pericardial effusion. Conclusion: Moderately compromised left ventricular systolic function with mild to moderate valvular insufficiency and pulmonary hypertension. When compared with previous echocardiogram, there appears to be a slight improvement in the left ventricular contractility. Procedure: A two-dimensional transthoracic echocardiogram with color flow and Doppler was performed. A contrast injection of Definity was performed to improve assessment of LV function. The study quality was technically difficult. Comparison is made with the echocardiogram of 11/24/2018. The patient was in normal sinus rhythm during the exam. Left Ventricle: The left ventricle is normal in size. Left ventricular wall thickness is mild-moderately increased. There is no ventricular septal defect visualized. The ejection fraction is estimated to be 25-30%. There are regional wall motion abnormalities as specified. Right Ventricle: The right ventricle is not well visualized. Atria: The left atrial size is normal. Right atrium not well visualized. The interatrial septum is not well visualized. Mitral Valve: There is mild mitral annular calcification. The mitral valve leaflets are mildly calcified. There is mild mitral regurgitation. Aortic Valve: The aortic valve is not well visualized. No aortic regurgitation is present. Tricuspid Valve: The tricuspid valve is not well visualized. There is mild to moderate tricuspid regurgitation. Pulmonic Valve: The pulmonic valve is not well visualized. There is trace pulmonic regurgitation. Great Vessels: The aortic root is normal size. The dimensions of the ascending aorta are normal. The pulmonary artery is normal size. The inferior vena cava was not visualized. Pericardium/ Pleura There is no pericardial effusion. MMode/2D Measurements & Calculations LVIDd: 5.9 cm LVOT diam: 1.9 cm LVIDs: 5.1 cm Ao root diam: 2.8 cm FS: 13.3 % asc Aorta Diam: 3.0 cm EPSS: 1.3 cm IVSd: 1.4 cm LVPWd: 1.3 cm LV correa. diameter/BSA (cm/m^2): 2.5 LV sys. diameter/BSA (cm/m^2): 2.2 LA A4 area: 21.0 cm2 RA long axis: 3.7 cm LA length (vol): 5.4 cm RA area: 11.2 cm2 RA vol: 28.6 ml RA : 12.1 ml/m2 IVC diam: 2.2 cm Doppler Measurements & Calculations Ao V2 max: 121.4 cm/sec LVOT Max Gilson: 104.6 cm/sec Ao V2 mean: 91.0 cm/sec LV V1 max P.4 mmHg Ao max P.9 mmHg LV V1 VTI: 25.4 cm Ao mean P.6 mmHg LEMUEL(I,D): 2.4 cm2 Ao V2 VTI: 29.4 cm LEMUEL(V,D): 2.4 cm2 sev ratio: 0.86 LEMUEL indexed to BSA (cm^2/m^2): 1.0 MV E max gilson: 75.9 cm/sec TR max gilson: 354.6 cm/sec MV A max gilson: 44.3 cm/sec TR max P.3 mmHg MV E/A: 1.7 PA V2 max: 106.5 cm/sec Med Peak E' Gilson: 4.2 cm/sec PA V2 mean: 69.4 cm/sec E/E' med: 17.9 PA mean P.2 mmHg Lat Peak E' Gilson: 4.8 cm/sec PA pr(Accel): 55.0 mmHg E/E' lat: 15.8 E/e' average: 16.8 MV dec time: 0.19 sec SV(LVOT): 70.9 ml Reading Physician:MILLA
[2024-12-13] MEDS: INSULIN REGULAR 100 UNIT/ML 3 ML VIAL SUBCUT ×3 (08:15→16:54)
[2024-12-13] MEDS: INSULIN REGULAR 100 UNIT/ML 3 ML VIAL 10 UNIT SUBCUT ×3 (08:15→16:54)
[2024-12-13] MEDS: INSULIN NPH 100 UNIT/ML 10ML VIAL 40 UNIT SUBCUT ×2 (08:21→21:18)
[2024-12-13] MEDS: SODIUM CHLORIDE 0.9% 1,000 ML 75 ML IV ×2 (08:22→22:53)
[2024-12-13] MEDS: MUPIROCIN 22 GM OINT 1 APPLIC TOP (08:23)
[2024-12-13] MEDS: METOPROLOL ER 50 MG TABLET 100 MG PO (08:24)
[2024-12-13] MEDS: TORSEMIDE 10 MG TABLET 40 MG PO (08:24)
[2024-12-13] MEDS: ISOSORBIDE MONONITRATE ER 30 MG TABLET 60 MG PO (08:25)
[2024-12-13] MEDS: HEPARIN 5,000 UNIT/ML VIAL 5000 UNIT SUBCUT ×2 (08:25→21:05)
[2024-12-13] MEDS: DULOXETINE 30 MG CAPSULE 60 MG PO (08:25)
[2024-12-13] MEDS: ATORVASTATIN 20 MG TABLET 10 MG PO (08:25)
[2024-12-13] MEDS: AMIODARONE 200 MG TABLET PO (08:26)
[2024-12-13] MEDS: POTASSIUM CHLORIDE 20 MEQ TAB PO (08:26)
[2024-12-13] MEDS: MULTIVITAMIN 1 TABLET 1 TAB PO (08:26)
[2024-12-13] MEDS: allopurinoL 100 MG TABLET PO (08:26)
[2024-12-13] MEDS: ASPIRIN EC 81 MG TABLET PO (08:26)
[2024-12-13] MEDS: LORATADINE 10 MG TABLET PO (08:26)
[2024-12-13 09:14] LABS: Add Manual Diff / Slide Review NO; Basophils Absolute Auto 0 /uL (0-100); Basophils Percent Auto 0.4 % (0-2); Eosinophils Absolute Auto 200 /uL (0-450); Hematocrit 29.9 % (36-46); Hemoglobin 9.8 g/dL (12.0-16.0); Lymphocytes Absolute Auto 1900 /uL (1100-4500); Lymphocytes Percent Auto 20.7 % (25-40); Mean Corpuscular HGB Conc 32.7 % (30-36); Monocytes Absolute Auto 700 /uL (0-900); Monocytes Percent Auto 7.3 % (3-14); Neutrophils Absolute Auto 6300 /uL (1500-7000); Neutrophils Percent Auto 69.6 % (50-75); Platelet Count 190 X10^3/uL (150-400); Red Blood Cell Count 3.25 X10^6/uL (4.0-5.2); Red Cell Distribution Width 15.8 % (11.6-14.8)
[2024-12-13 09:29] LABS: Alanine Aminotransferase 22 IU/L (<35); Albumin 3.5 g/dL (3.5-5.0); Albumin Globulin Ratio 1.2 (1.0-2.8); Alkaline Phosphatase 77 U/L (38-126); Aspartate Aminotransferase 29 IU/L (14-36); BUN Creatinine Ratio 19.1 (6-22); Bilirubin Total 0.6 mg/dL (0.2-1.3); Blood Urea Nitrogen 54 mg/dL (7-17); Calcium 7.7 mg/dL (8.4-10.2); Carbon Dioxide 23 mmol/L (22-32); Chloride 99 mmol/L (98-107); Estimated Glomerular Filt Rate 18 mL/min (>60); Glucose 177 mg/dL (70-99); HEMOLYSIS < 15 (0-50); Magnesium 2.1 mg/dL (1.6-2.3); Potassium 4.3 mmol/L (3.4-5.1); Sodium 135 mmol/L (137-145); Total Protein 6.5 g/dL (6.3-8.2)
--- NOTE | 2024-12-13 11:48 | DIET.CONS ---
Dietary Consultation Note Admission Date: 12/12/2024 02:52 Assessment: 64 y F presenting with nausea/vomiting, abd pain and admitted for sepsis. Dietitian consulted for T1Dm, poorly controlled BG. Met with pt at bedside. PMH of gastroparesis. Has supplies for DM management at home, except does not have CGM, years ago tried the dexcom, but had difficulties getting it consistently through the mail. Now just used BG meter multiple times daily. Working to establish with endo to get CGM, but long wait. Recent A1c% have been 7.8-7.9%. Struggles with up and downs in BG d/t gastroparesis. Eats modified diet of soft foods, low fiber, and protein shakes to meet needs. 2x/wk will have <50 BG in middle of night Ht: 162.56 cm Wt: 141.5 kg BMI: 53.1 Last BM: 12/13/24 (12/13/24 10:45) MNA: 14 Fish Score: 18 Diet: 12/12/24 Breakfast Carbohydrate Consistent Diet Diet Modifications: Carbohydrate level: Medium (3 CHO) Reflex DM orders: No Carbohydrate Consistent Diet Diet Modifications: Carbohydrate level: Medium (3 CHO) Reflex DM orders: No Food Texture: Level 7 - Regular Liquid Consistency: Level 0 - Thin Nutrition Percent Meal Consumed 75% 12/13/24 10:45 Percent Meal Consumed 100% 12/12/24 18:00 Labs: RBC 3.25 X10^6/uL (4.0-5.2) L 12/13/24 09:03 Hgb 9.8 g/dL (12.0-16.0) L 12/13/24 09:03 Hct 29.9 % (36-46) L 12/13/24 09:03 Creatinine 2.82 mg/dL (0.52-1.04) H 12/13/24 09:03 Lactate 1.8 mmol/L (0.7-2.1) 12/11/24 19:09 NT-Pro-B Natriuret Pep 2970 pg/mL (<125) H 12/11/24 19:09 Nutrition Diagnosis: Altered nutrition related lab values r/t endocrine dysfunction aeb A1c 7.8%, T1DM Interventions: -Referral for DM education with healthcare educator requested -If having hypoglycemia within 30-60 minutes after eating meal, can dose meal time insulin 30 minutes after start of eating d/t gastroparesis Monitoring/Evaluations: BG Electronically Signed by: Chichi Blevins 12/13/24 11:48 Clinical Dietitian [address] [address]
--- NOTE | 2024-12-13 14:23 | PM.PN.1 ---
Subjective Subjective Interval history: 64 F with PMH significant for ischemic CM, CAD s/p PCI to OM3 04/2022, history of VF s/p ICD ([employer] [employer]), HYPOthyroidism, obesity, poorly-controlled T1D with microvascular (gastroparesis, retinopathy) and macrovascular complications (charcot foot), HLD, HTN, gout, and WOO admitted with sepsis due to likely GBS bacteremia. Exam Vital Signs (past 8 hours): - 12/13/24 07:00 12/13/24 08:00 12/13/24 08:00 Temperature 97.1 F L Pulse Rate 63 Respiratory Rate 26 H Blood Pressure 122/62 Pulse Oximetry 98 98 Oxygen Delivery Method Nasal Cannula Nasal Cannula Oxygen Flow Rate 3 2 12/13/24 08:24 12/13/24 11:56 12/13/24 12:00 Temperature Pulse Rate 63 Respiratory Rate Blood Pressure 122/62 110/41 L Pulse Oximetry 97 Oxygen Delivery Method Room Air Oxygen Flow Rate 0 12/13/24 12:00 Temperature 97.1 F L Pulse Rate 62 Respiratory Rate 20 Blood Pressure 110/41 L Pulse Oximetry 100 Oxygen Delivery Method Oxygen Flow Rate 3 Oxygen Delivery Method Room Air Oxygen Flow Rate 3 Narrative Exam Narrative: Gen: Obese female, BMI 53, sitting in hospital chair no acute distress CV: RRR no m/r/g Pulm: CTA b/l Abd: S NT ND Ext: L thigh area of demarcation with regression, mild erythema today without warmth. Objective Labs 12/13/24 09:03 12/13/24 09:03 Labs: Laboratory Results - last 24 hr 12/13/24 09:03 WBC 9.0 D RBC 3.25 L Hgb 9.8 L Hct 29.9 L MCV 92.0 MCH 30.0 MCHC 32.7 RDW 15.8 H Plt Count 190 Neut % (Auto) 69.6 D Lymph % (Auto) 20.7 L [place] % (Auto) 7.3 Eos % (Auto) 2.0 Baso % (Auto) 0.4 Neut # (Auto) 6300 Lymph # (Auto) 1900 [place] # (Auto) 700 Eos # (Auto) 200 Baso # (Auto) 0 Sodium 135 L Potassium 4.3 Chloride 99 Carbon Dioxide 23 BUN 54 H Creatinine 2.82 H Estimated GFR 18 L BUN/Creatinine Ratio 19.1 Glucose 177 H D Calcium 7.7 L Magnesium 2.1 Total Bilirubin 0.6 AST 29 ALT 22 Alkaline Phosphatase 77 Total Protein 6.5 Albumin 3.5 Globulin 3.0 Albumin/Globulin Ratio 1.2 [facility] Medical History (Updated 12/12/24 @ 02:58 by Sumanth Ruvalcaba MD) CAD (coronary artery disease) Diabetic neuropathy Gastroparesis Hyperlipidemia CHF (congestive heart failure) HTN (hypertension) Diabetes Surgical History H/O cardiac catheterization History of implantable cardioverter-defibrillator (ICD) placement Social History household members: family Smoking Status: Never smoker alcohol intake: never Assessment & Plan Assessment & Plan narrative: 64 F with PMH significant for ischemic CM, CAD s/p PCI to OM3 04/2022, history of VF s/p ICD ([employer] [employer]), HYPOthyroidism, obesity, poorly-controlled T1D with microvascular (gastroparesis, retinopathy) and macrovascular complications (charcot foot), HLD, HTN, gout, and WOO admitted with sepsis and gram positive bacteremia. Sepsis with acute kidney injury on chronic diabetic kidney disease secondary to Gram-positive cocci bacteremia, cellulitis and recent dental deep cleaning Continue Vancomycin and Unasyn for coverage of MRSA, or resistant group B strep. Preliminary blood culture Gram-positive cocci await ID and sensitivity. PCR positive for group B strep. Unclear if bacteremia due to cellulitis or recent dental procedure. Consider additional imaging of face/head/neck or leg if lack of improvement. Marked rise in cr today, monitor urine output, stop entresto, continue IV fluid. No hydronephrosis noted on CT imaging. TTE ordered today given bacteremia, EF 30-35%, no obvious vegetations. [place] is possibly skin Type 2 diabetes mellitus with insulin dependence and resistance with diabetic gastroparesis Continue exogenous insulin and sliding scale as needed, much improved blood sugars today. Monitor daily CBC BUN creatinine and electrolytes Chronic coronary artery disease - Continue home asa, ticagrelor, imdur, metoprolol, rosuvastatin CHFrEF with history of VT - EF 30-35% on TTE here, previously 43% in 2021. - h/o VT on amiodarone with defibrillator in place. - continue amiodarone, hold entresto as noted above with MARK ANTHONY. - holding on diuretics given MARK ANTHONY. DVT prophylaxis Subcutaneous heparin Code status: Full code Dispo: admitted inpatient. Likely discharge home but may need PT/OT depending on clinical course. Will need improvement in renal function. Likely in the hospital at least 2-3 days from now. Time-Based Coding :: [TOTAL MINUTES] spent with patient and on the chart (including review of chart, obtaining history, exam, reviewing outside data, placing orders, documenting exam and treatment plan, and counseling patient) on [DATE].
[2024-12-13 18:51] LABS: Clostridium Difficile Tox PCR Negative for C. diff (Negative)
[2024-12-13] MEDS: ROPINIROLE 1 MG TABLET PO (21:05)
[2024-12-13] MEDS: LOPERAMIDE 2 MG CAPSULE 4 MG PO (21:05)
[2024-12-14] VITALS (10 sets, daily range): BP systolic 94–138; BP diastolic 44–70; PULSE 65–70; RESP 18–24; TEMP 35.9–36.3; O2SAT 93–96
[2024-12-14] MEDS: ACETAMINOPHEN 325 MG TABLET 650 MG PO (01:52)
[2024-12-14] MEDS: CYCLOBENZAPRINE 10 MG TABLET PO (02:18)
[2024-12-14 05:39] LABS: Add Manual Diff / Slide Review NO; Basophils Absolute Auto 0 /uL (0-100); Basophils Percent Auto 0.6 % (0-2); Eosinophils Absolute Auto 300 /uL (0-450); Eosinophils Percent Auto 4.2 % (2-4); Hematocrit 29.5 % (36-46); Hemoglobin 9.8 g/dL (12.0-16.0); Lymphocytes Absolute Auto 1900 /uL (1100-4500); Lymphocytes Percent Auto 24.1 % (25-40); Mean Corpuscular HGB Conc 33.2 % (30-36); Mean Corpuscular Hemoglobin 30.2 PG (26-34); Mean Corpuscular Volume 90.9 fL (80-100); Monocytes Absolute Auto 500 /uL (0-900); Neutrophils Absolute Auto 5100 /uL (1500-7000); Neutrophils Percent Auto 64.1 % (50-75); Platelet Count 203 X10^3/uL (150-400); Red Blood Cell Count 3.25 X10^6/uL (4.0-5.2); Red Cell Distribution Width 15.5 % (11.6-14.8); White Blood Cell Count 7.9 X10^3/uL (4.5-11.0)
[2024-12-14 05:52] LABS: Alanine Aminotransferase 23 IU/L (<35); Albumin 3.5 g/dL (3.5-5.0); Albumin Globulin Ratio 1.1 (1.0-2.8); Alkaline Phosphatase 86 U/L (38-126); Aspartate Aminotransferase 31 IU/L (14-36); BUN Creatinine Ratio 15.2 (6-22); Bilirubin Total 0.7 mg/dL (0.2-1.3); Blood Urea Nitrogen 61 mg/dL (7-17); Calcium 7.8 mg/dL (8.4-10.2); Carbon Dioxide 21 mmol/L (22-32); Chloride 102 mmol/L (98-107); Estimated Glomerular Filt Rate 12 mL/min (>60); Globulin 3.1 g/dL (1.7-4.1); Glucose 190 mg/dL (70-99); HEMOLYSIS < 15 (0-50); Magnesium 2.2 mg/dL (1.6-2.3); Potassium 4.9 mmol/L (3.4-5.1); Sodium 137 mmol/L (137-145); Total Protein 6.6 g/dL (6.3-8.2)
[2024-12-14] MEDS: LEVOTHYROXINE 100 MCG TABLET PO (05:54)
[2024-12-14] MEDS: AMPICILLIN/SULBACTAM 3 GM 3 GM in SODIUM CHLORIDE 0.9% 100 ML IV (05:54)
[2024-12-14] MEDS: LEVOTHYROXINE 75 MCG TABLET PO (05:54)
[2024-12-14] MEDS: INSULIN REGULAR 100 UNIT/ML 3 ML VIAL 10 UNIT SUBCUT (07:51)
[2024-12-14] MEDS: INSULIN REGULAR 100 UNIT/ML 3 ML VIAL SUBCUT ×3 (07:51→12:13)
[2024-12-14] MEDS: INSULIN NPH 100 UNIT/ML 10ML VIAL 40 UNIT SUBCUT (07:52)
[2024-12-14] MEDS: ATORVASTATIN 20 MG TABLET 10 MG PO (08:56)
[2024-12-14] MEDS: MULTIVITAMIN 1 TABLET 1 TAB PO (08:56)
[2024-12-14] MEDS: DULOXETINE 30 MG CAPSULE 60 MG PO (08:56)
[2024-12-14] MEDS: allopurinoL 100 MG TABLET PO (08:57)
[2024-12-14] MEDS: POTASSIUM CHLORIDE 20 MEQ TAB PO (08:57)
[2024-12-14] MEDS: ASPIRIN EC 81 MG TABLET PO (08:57)
[2024-12-14] MEDS: AMIODARONE 200 MG TABLET PO (08:57)
[2024-12-14] MEDS: ISOSORBIDE MONONITRATE ER 30 MG TABLET 60 MG PO (08:57)
[2024-12-14] MEDS: METOPROLOL ER 50 MG TABLET 100 MG PO ×2 (08:57→22:22)
[2024-12-14] MEDS: LORATADINE 10 MG TABLET PO (08:57)
[2024-12-14] MEDS: HEPARIN 5,000 UNIT/ML VIAL 5000 UNIT SUBCUT ×2 (08:58→22:22)
[2024-12-14] MEDS: LOPERAMIDE 2 MG CAPSULE PO (08:58)
[2024-12-14] MEDS: MUPIROCIN 22 GM OINT 1 APPLIC TOP (08:58)
--- NOTE | 2024-12-14 11:18 | CM.DPC ---
DCP Cont: Per MD, pt's creatinine is now 4 and monitoring her kidney function closely as pt at risk for dialysis if kidney function continues to worsen. If dialysis needed, then pt will need hospital transfer. Plan: SW to follow closely for ongoing labs and medical needs to determine improvement for d/c home with family vs hospital transfer. TONI Hagen
--- NOTE | 2024-12-14 11:26 | P.PN_ITS ---
Subjective Subjective Interval history: 64 F with PMH significant for ischemic CM, CAD s/p PCI to OM3 04/2022, history of VF s/p ICD ([employer] [employer]), HYPOthyroidism, obesity, poorly-controlled T1D with microvascular (gastroparesis, retinopathy) and macrovascular complications (charcot foot), HLD, HTN, gout, and WOO admitted with sepsis due to GBS bacteremia. Worsening Cr over the last few days, Cr now up to 4. She denies dyspnea today, no nausea or vomiting but had large diarrhea yesterday. C. diff testing negative. Improved this AM with imodium only one liquid bowel movement this morning. She feels very fatigued and tired. Now listed for transfer given rising Cr concern for volume overload Exam Vital Signs (past 8 hours): - 12/14/24 04:00 12/14/24 04:00 12/14/24 08:00 Temperature 97.3 F L 97.0 F L Pulse Rate 67 68 Respiratory Rate 20 18 Blood Pressure 106/52 L 106/58 L Pulse Oximetry 95 93 96 Oxygen Delivery Method Room Air Oxygen Flow Rate 0 0 12/14/24 08:00 12/14/24 08:57 Temperature Pulse Rate 68 Respiratory Rate Blood Pressure 106/58 L Pulse Oximetry 96 Oxygen Delivery Method Room Air Oxygen Flow Rate 0 Oxygen Delivery Method Room Air Oxygen Flow Rate 0 Narrative Exam Narrative: Gen: Obese female, BMI 53, sitting in hospital chair no acute distress CV: RRR no m/r/g Pulm: CTA b/l Abd: S NT ND Ext: L thigh area of demarcation with regression, mild erythema today without warmth. New developing LE edema, +1 on LLE pretibial area, trace on RLE. Objective Labs 12/14/24 05:25 12/14/24 05:25 Labs: Laboratory Results - last 24 hr 12/13/24 12/14/24 17:40 05:25 WBC 7.9 RBC 3.25 L Hgb 9.8 L Hct 29.5 L MCV 90.9 MCH 30.2 MCHC 33.2 RDW 15.5 H Plt Count 203 Neut % (Auto) 64.1 Lymph % (Auto) 24.1 L [place] % (Auto) 7.0 Eos % (Auto) 4.2 H Baso % (Auto) 0.6 Neut # (Auto) 5100 Lymph # (Auto) 1900 [place] # (Auto) 500 Eos # (Auto) 300 Baso # (Auto) 0 Sodium 137 Potassium 4.9 Chloride 102 Carbon Dioxide 21 L BUN 61 H Creatinine 4.02 H Estimated GFR 12 L BUN/Creatinine Ratio 15.2 Glucose 190 H Calcium 7.8 L Magnesium 2.2 Total Bilirubin 0.7 AST 31 ALT 23 Alkaline Phosphatase 86 Total Protein 6.6 Albumin 3.5 Globulin 3.1 Albumin/Globulin Ratio 1.1 C. difficile Tox (PCR) Negative for c. diff [facility] Medical History (Updated 12/12/24 @ 02:58 by Sumanth Ruvalcaba MD) CAD (coronary artery disease) Diabetic neuropathy Gastroparesis Hyperlipidemia CHF (congestive heart failure) HTN (hypertension) Diabetes Surgical History H/O cardiac catheterization History of implantable cardioverter-defibrillator (ICD) placement Social History household members: family Smoking Status: Never smoker alcohol intake: never Assessment & Plan Assessment & Plan narrative: 64 F with PMH significant for ischemic CM, CAD s/p PCI to OM3 04/2022, history of VF s/p ICD ([employer] [employer]), HYPOthyroidism, obesity, poorly-controlled T1D with microvascular (gastroparesis, retinopathy) and macrovascular complications (charcot foot), HLD, HTN, gout, and WOO admitted with sepsis and gram positive bacteremia. Sepsis with acute kidney injury on chronic diabetic kidney disease secondary to Gram-positive cocci bacteremia, cellulitis and recent dental deep cleaning - Continued Vancomycin and Unasyn for coverage of MRSA initially and possible anaerobes given recent dental work, or resistant group B strep. With cultures today showing sensitive Group B strep, change to ceftriaxone 2g q24 hours. Will need at least 2 weeks of IV antibiotic after 1st negative culture (currently 12/13). If transferred will likely need infectious disease consultation as well. - Unclear if bacteremia due to cellulitis or recent dental procedure. Consider additional imaging of face/head/neck or leg, though currently limited by renal function. Source probably cellulitis most likely. - Continued marked rise in cr today up to 4 with development of leg edema on exam and worsened lethargy. Suspect hypovolemic etiology given diarrhea overnight, with previous entresto and diuretic ordered on admission. Discussed with RN to track urine output more closely, and if still unable place brown. Have stopped entresto, continue IV fluid. Held home diuretic. No obstruction on admission CT from 12/11. Will also attempt to transfer today for worsening renal function, nephrology consultation with possible need for temporary dialysis. - TTE ordered given bacteremia, EF 30-35%, no obvious vegetations. Type 2 diabetes mellitus with insulin dependence and resistance with diabetic gastroparesis Continue exogenous insulin and sliding scale as needed, much improved blood sugars today. Monitor daily CBC BUN creatinine and electrolytes NPH 40 U BID, Lispro 10 AC and sliding scale. Chronic coronary artery disease - Continue home asa, ticagrelor, imdur, metoprolol, rosuvastatin CHFrEF with history of VT - EF 30-35% on TTE here, previously 43% in 2021. - h/o VT on amiodarone with defibrillator in place. - continue amiodarone, hold entresto as noted above with MARK ANTHONY. - holding on diuretics given MARK ANTHONY. DVT prophylaxis * Subcutaneous heparin Code status: * Full code Dispo: admitted inpatient. Attempting to transfer today given worsening renal function. Time-Based Coding :: [TOTAL MINUTES] spent with patient and on the chart (including review of chart, obtaining history, exam, reviewing outside data, placing orders, documenting exam and treatment plan, and counseling patient) on [DATE].
[2024-12-14] MEDS: INSULIN REGULAR 100 UNIT/ML 3 ML VIAL 12 UNIT SUBCUT ×2 (11:59→16:43)
[2024-12-14] MEDS: cefTRIAXone 2,000 MG in SODIUM CHLORIDE 0.9% 100 ML 200 MG IV (12:13)
[2024-12-14] MEDS: SODIUM CHLORIDE 0.9% 1,000 ML 75 ML IV (13:09)
[2024-12-14] MEDS: INSULIN LISPRO 100 UNIT/ML 3ML VIAL SUBCUT (16:44)
[2024-12-14] MEDS: ROPINIROLE 1 MG TABLET PO (22:22)
[2024-12-14] MEDS: INSULIN NPH 100 UNIT/ML 10ML VIAL 45 UNIT SUBCUT (22:25)
[2024-12-15] VITALS (8 sets, daily range): BP systolic 128–140; BP diastolic 58–86; PULSE 72–94; RESP 19–22; TEMP 36.2–37; O2SAT 94–96
--- NOTE | 2024-12-15 04:37 | PC.NURSE ---
02:26- Patient reports feeling like she's drowining, started to have increased dry cough. When asked if cough was productive, she said, I just feel wet. Lung sounds diminished, clear. BP 138/95, HR 68, O2 94% RA, R 22. Fluids stopped. Dr. Witt notified. 02:42- Dr. Witt states I'm ok with holding fluid for now if she has respiratory issues. 03:30- Pt sleeping at this time.
[2024-12-15] MEDS: LEVOTHYROXINE 100 MCG TABLET PO (05:34)
[2024-12-15] MEDS: LEVOTHYROXINE 75 MCG TABLET PO (05:34)
[2024-12-15 06:51] LABS: Add Manual Diff / Slide Review NO; Basophils Absolute Auto 0 /uL (0-100); Basophils Percent Auto 0.6 % (0-2); Eosinophils Absolute Auto 400 /uL (0-450); Eosinophils Percent Auto 5.3 % (2-4); Hematocrit 30.9 % (36-46); Hemoglobin 10.1 g/dL (12.0-16.0); Lymphocytes Absolute Auto 1400 /uL (1100-4500); Mean Corpuscular HGB Conc 32.7 % (30-36); Mean Corpuscular Hemoglobin 29.8 PG (26-34); Mean Corpuscular Volume 91.1 fL (80-100); Monocytes Absolute Auto 500 /uL (0-900); Monocytes Percent Auto 6.9 % (3-14); Neutrophils Absolute Auto 5200 /uL (1500-7000); Neutrophils Percent Auto 68.2 % (50-75); Platelet Count 209 X10^3/uL (150-400); Red Blood Cell Count 3.39 X10^6/uL (4.0-5.2); Red Cell Distribution Width 15.3 % (11.6-14.8); White Blood Cell Count 7.6 X10^3/uL (4.5-11.0)
[2024-12-15 07:00] LABS: Alanine Aminotransferase 21 IU/L (<35); Albumin 3.6 g/dL (3.5-5.0); Albumin Globulin Ratio 1.1 (1.0-2.8); Alkaline Phosphatase 85 U/L (38-126); Aspartate Aminotransferase 19 IU/L (14-36); BUN Creatinine Ratio 12.1 (6-22); Bilirubin Total 0.7 mg/dL (0.2-1.3); Blood Urea Nitrogen 66 mg/dL (7-17); Calcium 8.2 mg/dL (8.4-10.2); Carbon Dioxide 19 mmol/L (22-32); Chloride 103 mmol/L (98-107); Estimated Glomerular Filt Rate 8 mL/min (>60); Globulin 3.3 g/dL (1.7-4.1); Glucose 208 mg/dL (70-99); HEMOLYSIS < 15 (0-50); Magnesium 2.3 mg/dL (1.6-2.3); Potassium 5.3 mmol/L (3.4-5.1); Sodium 136 mmol/L (137-145); Total Protein 6.9 g/dL (6.3-8.2)
[2024-12-15] MEDS: INSULIN LISPRO 100 UNIT/ML 3ML VIAL SUBCUT ×2 (08:07→12:27)
[2024-12-15] MEDS: INSULIN REGULAR 100 UNIT/ML 3 ML VIAL 12 UNIT SUBCUT ×2 (08:10→12:27)
[2024-12-15] MEDS: INSULIN NPH 100 UNIT/ML 10ML VIAL 45 UNIT SUBCUT (08:12)
[2024-12-15] MEDS: ISOSORBIDE MONONITRATE ER 30 MG TABLET 60 MG PO (10:08)
[2024-12-15] MEDS: allopurinoL 100 MG TABLET PO (10:08)
[2024-12-15] MEDS: METOPROLOL ER 50 MG TABLET 100 MG PO (10:08)
[2024-12-15] MEDS: ATORVASTATIN 20 MG TABLET 10 MG PO (10:08)
[2024-12-15] MEDS: AMIODARONE 200 MG TABLET PO (10:08)
[2024-12-15] MEDS: MULTIVITAMIN 1 TABLET 1 TAB PO (10:08)
[2024-12-15] MEDS: DULOXETINE 30 MG CAPSULE 60 MG PO (10:08)
[2024-12-15] MEDS: MUPIROCIN 22 GM OINT 1 APPLIC TOP (10:09)
[2024-12-15] MEDS: ASPIRIN EC 81 MG TABLET PO (10:09)
[2024-12-15] MEDS: HEPARIN 5,000 UNIT/ML VIAL 5000 UNIT SUBCUT (10:09)
[2024-12-15] MEDS: LOPERAMIDE 2 MG CAPSULE PO (10:25)
--- NOTE | 2024-12-15 10:33 | CM.DPNOTE ---
DCP Continued: Reviewed EMR and team rounds for pt?s medical status. Per hospitalist, patient is in acute renal failure as their Cr is elevated and they are dyspneic. Acute corporate safety coordinator attempting transfer to higher level of care, no other dc needs identified at this time. Plan: Anticipating transfer to higher level of care. CM Team will continue to follow for coordination of discharge plans. NICHOLAS Grissom
--- NOTE | 2024-12-15 10:47 | P.DS_ITS ---
History of Present Illness History of Present Illness Date Patient Seen: 12/15/24 Time Patient Seen: 09:35 Date of Onset of Symptoms: 12/12/24 Chief complaint: NV Narrative: 64F with PMH of T1DM with neuropathy & gastroparesis, HTN, CHF (type unknown), hyperlipidemia, CAD who presents complaining of fever, intractable nausea and vomiting and increasing abdominal pain. She notes that she had a dental appointment on the for a dental cleaning. On she was feeling significantly worse, Wednesday and Wednesday she was vomiting much of the weekend. She states that her blood sugars have continued to be okay, she still uses a finger poke and does not have a continuous glucose monitor. She has had a fever complains of general malaise, no cough, chest pain no significant abdominal pain. She is not showing any evidence of diabetic ketoacidosis. She was initially given a L of fluid, blood pressure is appropriate, perfusion is improved. She has had intermittent fevers up to 101.9 has been treated with Tylenol. Oxygenation fluctuates between 87 and 93% on room air. WBC is 21K. She has MARK ANTHONY and elevated procalcitonin. Discharge Providers Provider Date of admission: 12/12/24 02:52 Discharge Date: 12/15/24 Primary care physician: Erick Lora, Consults: 12/12/24 04:20 [place] [facility] [place] [employer] Routine Comment: [employer] Consult needed for:: Other reason (Comment) Comment: would like to discuss housing, currently lives with sister. Discharge provider: Sean Hong MD Summary Hospital Course Discharge Diagnosis: 1. Acute kidney injury due to acute tubular necrosis due to 2 and 3. Consider contributing contrast nephropathy. 2. Strep agalactiae (group B) bacteremia 3. Septicemia due to 2. 4. Progressive hyperkalemia, uremia and volume overload due to 1. 5. Diabetes mellitus, type 2, insulin-dependent with diabetic gastroparesis 6. Chronic coronary artery disease 7. Congestive heart failure with reduced ejection fraction and history of ventricular tachycardia, status post defibrillator Hospital Course: Patient was admitted and started on Vancomycin and Unasyn for coverage of MRSA initially and possible anaerobes given recent dental work, or resistant group B strep, with cultures showing sensitive Group B strep changed to ceftriaxone 2g q24 hours on 12/14 with plan for at least 2 weeks of IV antibiotic after 1st negative culture (currently 6/18). Initial evaluation when she presented with normal renal function included CT abdomen/pelvis with contrast. It was unclear if bacteremia was due to cellulitis or recent dental procedure. Consider additional imaging of face/head/neck or leg, though currently limited by renal function. With a continued marked rise in creatinine up to 5.46 mg/dL, estimated GFR to 8 mL/minute, elevated potassium to 5.3 and BUN 66, with progressive shortness of breath and net positive volume status with oliguria and progressive edema with development of rales on exam, with normal oxygen levels at the time of this dictation, arrangements were made for urgent transfer to a tertiary level facility for Nephrology consultation and possible need for temporary dialysis. She will also benefit from infectious disease consultation. Her diabetes was managed by sliding scale and her usual NPH insulin. She was continued on her usual cardiac medications for coronary disease and ventricular tachycardia, with Entresto and diuretics held due to MARK ANTHONY. She was administered subcutaneous heparin for DVT prophylaxis. Code status was defined as full code per the patient's wishes. Final transfer arrangements are pending at the time of this dictation due to limited bed availability in the region. Status at Discharge Cognitive/behavioral status at discharge: oriented Functional status at discharge: uses cane/walker Overall status at discharge: patient is not back to baseline Time Spent with Patient Time spent: Greater than 30 minutes Exam Vital Signs (past 8 hours): - 12/15/24 04:00 12/15/24 05:00 12/15/24 08:00 Temperature 98.6 F 97.3 F L Pulse Rate 86 74 Respiratory Rate 19 20 Blood Pressure 136/86 132/58 L Pulse Oximetry 94 96 94 Oxygen Delivery Method Room Air Oxygen Flow Rate 0 0 12/15/24 10:08 Temperature Pulse Rate 74 Respiratory Rate Blood Pressure 132/58 L Pulse Oximetry Oxygen Delivery Method Oxygen Flow Rate Oxygen Delivery Method Room Air Oxygen Flow Rate 0 Narrative Exam Narrative: Gen: Obese female, BMI 53, sitting in hospital chair no acute distress CV: RRR no m/r/g Pulm: Bibasilar crackles Abd: S NT ND Ext: L thigh area of demarcation with regression, minimal to no erythema today without warmth. New developing LE edema, +1 on LLE pretibial area, trace on RLE. Objective ECG Impression: 12/11/2024: Sinus rhythm with 1st degree AV block Nonspecific intraventricular block Minimal voltage criteria for LVH, may be normal variant ( Loop product ) Cannot rule out Septal infarct , age undetermined T wave abnormality, consider lateral ischemia Electronically Signed On 12-12-2024 12:09:55 PDT by Mateo Paez MD Imaging *: Radiologist's impression: 1. Chest x-ray 12/11/2024: Cardiomegaly and mild congestion. No definite focal infiltrate. No significant pleural effusion or pneumothorax. 2. Abdomen pelvis CT with contrast 12/11/2024: CT abdomen and pelvis without acute abnormalities to explain patient's symptoms. Cholelithiasis without CT evidence for acute cholecystitis. Stable appearance of 4.2 cm right hepatic lobe hemangioma. New since November 03, 2022 CT but chronic appearing anterior compression deformity of the L2 vertebral body. Other chronic findings as above. 3. Echocardiogram 12/13/2024: 1. The left ventricular contractility appears to be moderately compromised estimated ejection fraction is approximately 30 to 35%. There is severe hypokinesis of the anterior and lateral segments. Mild to moderate concentric LVH. Grade 1 diastolic dysfunction. 2. In the limited views, the right ventricular contractility appears to be preserved. 3. All cardiac chambers appears to be grossly normal in size. 4. Valves were not well-visualized. Doppler interrogation demonstrated mild mitral regurgitation and mild to moderate tricuspid regurgitation. Estimated pulmonary systolic artery pressures of 60 to 64 mmHg. 5. No obvious intracardiac shunts. 7. No obvious intracardiac masses nor thrombi. 8. No hemodynamically significant pericardial effusion. Conclusion: Moderately compromised left ventricular systolic function with mild to moderate valvular insufficiency and pulmonary hypertension. When compared with previous echocardiogram, there appears to be a slight improvement in the left ventricular contractility. Labs 12/15/24 06:20 12/15/24 06:20 Labs: Laboratory Results - last 24 hr 12/15/24 06:20 WBC 7.6 RBC 3.39 L Hgb 10.1 L Hct 30.9 L MCV 91.1 MCH 29.8 MCHC 32.7 RDW 15.3 H Plt Count 209 Neut % (Auto) 68.2 Lymph % (Auto) 19.0 L [place] % (Auto) 6.9 Eos % (Auto) 5.3 H Baso % (Auto) 0.6 Neut # (Auto) 5200 Lymph # (Auto) 1400 [place] # (Auto) 500 Eos # (Auto) 400 Baso # (Auto) 0 Sodium 136 L Potassium 5.3 H Chloride 103 Carbon Dioxide 19 L BUN 66 H Creatinine 5.46 H Estimated GFR 8 L BUN/Creatinine Ratio 12.1 Glucose 208 H Calcium 8.2 L Magnesium 2.3 Total Bilirubin 0.7 AST 19 ALT 21 Alkaline Phosphatase 85 Total Protein 6.9 Albumin 3.6 Globulin 3.3 Albumin/Globulin Ratio 1.1 PFSH Medical History CAD (coronary artery disease) CHF (congestive heart failure) Diabetes Diabetic neuropathy Gastroparesis HTN (hypertension) Hyperlipidemia Surgical History H/O cardiac catheterization History of implantable cardioverter-defibrillator (ICD) placement Social History household members: family Smoking Status: Never smoker alcohol intake: never Discharge Plan Discharge Plan Patient Disposition: [facility] Discharge Data Primary Care Provider: Erick Lora Quality MIPS - Admit I confirm the patient?s Advance Care Plan is present, Code status is documented, Surrogate decision maker is in patient?s record [If Yes, STOP here]: Yes MIPS - Meds 'Current medications' to include all prescriptions, [id number] products, herbals, cannabis/cannabidiol products, and vitamin/mineral/dietary (nutritional) supplements. I have utilized all available resources to obtain, update, or review the patient?s current medications. [If Yes, STOP here]: Yes MIPS - DC The patient has a history of heart transplant or Left Ventricular Assist Device (LVAD). If yes, STOP here.: No The patient has current or prior documentation of left ventricular ejection fraction (LVEF) less than or equal to 40%, or moderate or severely depressed left ventricular systolic function.: No A. The patient was prescribed or already taking an Angiotensin-Converting Enzyme (BRIANA) Inhibitor, or Angiotensin Receptor Jovita (ARB).: No B. The patient was prescribed or already taking a beta-jovita. [If Yes to Both A & B, STOP here]: Yes Patient not prescribed/taking BRIANA or ARB for medical/patient reason(s) including (ex: allergy, intolerance, contraindication).: MARK ANTHONY Patient not prescribed/taking BRIANA or ARB, no reason given.: No Patient not prescribed/taking beta-jovita, no reason given.: No PROFEE Charge Codes Discharge inpatient/observation: [id number]
[2024-12-15] MEDS: FUROSEMIDE 60 MG in SODIUM CHLORIDE 0.9% 50 ML 112 MG IV (12:27)
[2024-12-15] MEDS: cefTRIAXone 2,000 MG in SODIUM CHLORIDE 0.9% 100 ML 200 MG IV (13:31)
[2024-12-15] MEDS: SODIUM ZIRCONIUM CYCLOSILICATE 10 GM POWD.PACK PO (13:32)
[2024-12-15] MEDS: FUROSEMIDE 120 MG in SODIUM CHLORIDE 0.9% 50 ML 124 MG IV (16:22)
[2024-12-15] MEDS: ONDANSETRON 4 MG/2 ML INJ IV (19:00)
--- NOTE | 2024-12-15 19:06 | PC.NURSE ---
Addendum entered by Jailene Pritchard R.N. 12/15/24 19:11: Patient meds retrieved from pharmacy before departure. Original Note: Pt transferred to [facility] at 1905, escorted off floor on stretcher accompanied by ambulance transport team. Tele d/c'd, packet for [facility] sent with ambulance team. Report called to [place] ([phone] ext [phone]) at [phone]. Patient left the floor with all belongings.
== END 2024-12-15 19:11 | disposition short-term general hospital (02) | DRG 871 ==
LOC: ED 12-12 00:45 → AC 12-12 02:54
PROVIDERS: Internal Medicine; Admitting Provider Internal Medicine; Emergency Provider Emergency Medicine; Family Provider Family Medicine; PCP Family Medicine; Referring Provider Emergency Medicine; Visit Provider Internal Medicine
DX: A40.1 Sepsis due to streptococcus, group B (principal); N17.0 Acute kidney failure with tubular necrosis; Z68.43 Body mass index [BMI] 50.0-59.9, adult; L03.116 Cellulitis of left lower limb; I13.0 Hypertensive heart and chronic kidney disease with heart failure and stage 1 through stage 4 chronic kidney disease, or unspecified chronic kidney disease; I50.22 Chronic systolic (congestive) heart failure; R65.20 Severe sepsis without septic shock; E66.9 Obesity, unspecified; E10.40 Type 1 diabetes mellitus with diabetic neuropathy, unspecified; E10.43 Type 1 diabetes mellitus with diabetic autonomic (poly)neuropathy; K31.84 Gastroparesis; I25.10 Atherosclerotic heart disease of native coronary artery without angina pectoris; E78.5 Hyperlipidemia, unspecified; E03.9 Hypothyroidism, unspecified; N18.9 Chronic kidney disease, unspecified; R19.7 Diarrhea, unspecified; E87.5 Hyperkalemia; Z95.810 Presence of automatic (implantable) cardiac defibrillator; Z86.79 Personal history of other diseases of the circulatory system; Z98.818 Other dental procedure status
CPT/HCPCS: 36415; 71045; 74177; 80048; 80053; 81003; 82009; 82805; 82962; 83605; 83690; 83735; 83880; 84145; 84484; 85025; 85610; 85730; 87040; 87154; 87186; 87493; 93005; 93010; 96365; 99285; C8929; J0295; J0696; J1644; J1815; J1938; J2405; J2543; Q9957; Q9967